=== PATIENT | male | born 1935 | race Caucasian/White ===

== ENCOUNTER 2017-04-06 02:10 | Inpatient (IN) | payer MEDICARE, OTHER ==
--- NOTE | 2017-04-06 02:25 | EDM.PDOC ---
ED HPI GENERAL MEDICAL PROBLEM - General Chief Complaint: Diabetic Complaint Stated Complaint: FROM [facility] Time Seen by Provider: 04/06/17 02:13 Source of Information: Reports: Patient, EMS History Limitations: Reports: No Limitations - History of Present Illness INITIAL COMMENTS - FREE TEXT/NARRATIVE: pt states is here for BS problem, denies pain. EMS found pt @44 - Related Data Allergies Allergy/AdvReac Type Severity Reaction Status Date / Time meperidine [From Demerol] Allergy Cannot Verified 04/06/17 03:47 Remember Home Meds: Home Meds Apixaban [Eliquis] 10 mg PO BID 04/06/17 [History] Ascorbic Acid 500 mg PO DAILY 04/06/17 [History] Aspirin [Halfprin] 81 mg PO BRK 04/06/17 [History] Carvedilol [Coreg] 6.25 mg PO BIDMEALS 04/06/17 [History] Doxycycline Monohydrate 100 mg PO BID 04/06/17 [History] Furosemide [Lasix] 40 mg PO BID 04/06/17 [History] Insulin Aspart [NovoLOG] 0 unit SQ WITHMEALSANDBED 04/06/17 [History] Insulin Aspart [NovoLOG] 10 unit SQ WITHMEALSANDBED 04/06/17 [History] Latanoprost [Xalatan 0.005% Ophth Soln] 2.5 ml EYEBOTH BEDTIME 04/06/17 [History ] Losartan [Cozaar] 100 mg PO DAILY 04/06/17 [History] Multivitamin [Multivitamins] 1 each PO DAILY 04/06/17 [History] Pantoprazole Sodium 40 mg PO DAILY 04/06/17 [History] Potassium Chloride [K-Tab ER] 40 meq PO DAILY 04/06/17 [History] Ranitidine HCl [Zantac] 150 mg PO BID 04/06/17 [History] Zolpidem Tartrate [Ambien] 5 mg PO QPM 04/06/17 [History] atorvaSTATin Calcium [Atorvastatin Calcium] 10 mg PO QPM 04/06/17 [History] busPIRone HCl [Buspirone HCl] 7.5 mg PO BID 04/06/17 [History] ED ROS GENERAL - Review of Systems Review Of Systems: ROS reveals no pertinent complaints other than HPI. ED EXAM GENERAL NO PERIP PULSE - Physical Exam Exam: See Below Exam Limited By: No Limitations General Appearance: Alert, WD/WN, No Apparent Distress. No: Other Eye Exam: Bilateral Eye: PERRL (pupils ER $) Ears: Hearing Grossly Normal Throat/Mouth: Normal Voice, No Airway Compromise Head: Atraumatic Neck: Non-Tender, Full Range of Motion Respiratory/Chest: No Respiratory Distress Cardiovascular: Regular Rate, Rhythm GI/Abdominal: Soft, Non-Tender Extremities: Other (bilat BKA) Neurological: Alert, Oriented, CN II-XII Intact, Normal Cognition, Normal Gait Psychiatric: Normal Affect. No: Normal Mood Skin Exam: Other (generalized pitting edema) Lymphatic: No Adenopathy Course - Vital Signs Last Recorded V/S: Last Vital Signs Temp 35.5 C 04/06/17 02:14 Pulse 58 L 04/06/17 02:14 Resp 12 04/06/17 02:14 BP 100/45 L 04/06/17 02:14 Pulse Ox 97 04/06/17 02:14 - Orders/Labs/Meds Orders: Active Orders 24 hr Category Date Time Status Blood Glucose Check, Bedside [RC] ONETIME Care 04/06/17 02:59 Active EKG 12 Lead [EKG Documentation Completion] [RC] STAT Care 04/06/17 03:13 Active Chest 1V Frontal [CR] Urgent Exams 04/06/17 03:00 Taken Labs: Laboratory Tests 04/06/17 04/06/17 04/06/17 Range/Units 02:45 02:45 02:45 WBC 7.3 (5.0-10.0) 10^3/uL RBC 4.36 L (4.6-6.2) 10^6/uL Hgb 11.9 L (14.0-18.0) g/dL Hct 36.6 L (40.0-54.0) % MCV 83.9 (80-100) fL MCH 27.3 (27.0-34.0) pg MCHC 32.5 L (33.0-35.0) g/dL Plt Count 227 (150-450) 10^3/uL Neut % (Auto) 82.6 H (42.2-75.2) % Lymph % (Auto) 9.2 L (20.5-50.1) % [place] % (Auto) 7.0 (2-8) % Eos % (Auto) 1.1 (1.0-3.0) % Baso % (Auto) 0.1 (0.0-1.0) % Sodium 141 (135-145) mmol/L Potassium 3.9 (3.6-5.0) mmol/L Chloride 103 (101-111) mmol/L Carbon Dioxide 29.0 (21.0-31.0) mmol/L Anion Gap 12.9 BUN 23 H (7-18) mg/dL Creatinine 1.4 H (0.6-1.3) mg/dL Est Cr Clr Drug Dosing 42.78 mL/min Estimated GFR (MDRD) 49 BUN/Creatinine Ratio 16.42 Glucose 64 L (74-105) mg/dL POC Glucose (83-110) mg/dl Calcium 8.5 (8.4-10.2) mg/dl Total Bilirubin 0.8 (0.2-1.0) mg/dL AST 19 (10-42) IU/L ALT 14 (10-60) IU/L Alkaline Phosphatase 85 (42-121) IU/L Troponin I 0.07 H* (0.00-0.02) ng/ml B-Natriuretic Peptide 2000 H (0-100) pg/ml Total Protein 5.2 L (6.7-8.2) g/dl Albumin 2.5 L (3.2-5.5) g/dl Globulin 2.7 Albumin/Globulin Ratio 0.93 /19/17 Range/Units 02:48 WBC (5.0-10.0) 10^3/uL RBC (4.6-6.2) 10^6/uL Hgb (14.0-18.0) g/dL Hct (40.0-54.0) % MCV (80-100) fL MCH (27.0-34.0) pg MCHC (33.0-35.0) g/dL Plt Count (150-450) 10^3/uL Neut % (Auto) (42.2-75.2) % Lymph % (Auto) (20.5-50.1) % [place] % (Auto) (2-8) % Eos % (Auto) (1.0-3.0) % Baso % (Auto) (0.0-1.0) % Sodium (135-145) mmol/L Potassium (3.6-5.0) mmol/L Chloride (101-111) mmol/L Carbon Dioxide (21.0-31.0) mmol/L Anion Gap BUN (7-18) mg/dL Creatinine (0.6-1.3) mg/dL Est Cr Clr Drug Dosing mL/min Estimated GFR (MDRD) BUN/Creatinine Ratio Glucose (74-105) mg/dL POC Glucose 59 L (83-110) mg/dl Calcium (8.4-10.2) mg/dl Total Bilirubin (0.2-1.0) mg/dL AST (10-42) IU/L ALT (10-60) IU/L Alkaline Phosphatase (42-121) IU/L Troponin I (0.00-0.02) ng/ml B-Natriuretic Peptide (0-100) pg/ml Total Protein (6.7-8.2) g/dl Albumin (3.2-5.5) g/dl Globulin Albumin/Globulin Ratio - Re-Assessments/Exams Free Text/Narrative Re-Assessment/Exam: 04/06/17 04:[address] Romero/Hector @ who kindly accepted pt. Departure - Departure Time of Disposition: 04:14 Disposition: DC/Tfer to Acute Hospital 02 Condition: Poor Clinical Impression: Hypoglycemia, Pleural effusion CHF (congestive heart failure) Qualifiers: Congestive heart failure type: unspecified congestive heart failure type Congestive heart failure chronicity: acute on chronic Qualified Code(s): I50.9 - Heart failure, unspecified Pneumonia Qualifiers: Pneumonia type: due to unspecified organism Laterality: left Lung location: lower lobe of lung Qualified Code(s): J18.1 - Lobar pneumonia, unspecified organism Hypotension Qualifiers: Hypotension type: other hypotension type Qualified Code(s): I95.89 - Other hypotension - Discharge Information Forms: Interfacility Transfer EMTALA - My Orders Last 24 Hours: My Active Orders 04/06/17 02:59 Blood Glucose Check, Bedside [RC] ONETIME 04/06/17 03:00 Chest 1V Frontal [CR] Urgent 04/06/17 03:13 EKG 12 Lead [EKG Documentation Completion] [RC] STAT - Assessment/Plan Last 24 Hours: My Active Orders 04/06/17 02:59 Blood Glucose Check, Bedside [RC] ONETIME 04/06/17 03:00 Chest 1V Frontal [CR] Urgent 04/06/17 03:13 EKG 12 Lead [EKG Documentation Completion] [RC] STAT
[2017-04-06] MEDS ORDERED: Acetaminophen 325 MG Tab PO PRN (05:38)
[2017-04-06] MEDS ORDERED: Sodium Chloride 0.9% 10 ML Syringe FLUSH PRN (05:38)
--- NOTE | 2017-04-06 05:48 | PCM.HP ---
H&P History of Present Illness - General Date of Service: 04/06/17 Admit Problem/Dx: Admission Diagnosis/Problem Admission Diagnosis/Problem CHF, Congestive heart failure Source of Information: Patient, Family, Provider - History of Present Illness Initial Comments - Free Text/Narative: The patient is a 81-year-old gentleman with a history of diabetes, difficult to control. The patient has bilateral below-knee amputation. The patient was recently admitted to [facility] with pneumonia and sepsis. The patient was on IV fluids and the had severe edema subsequently. The patient was treated for congestive heart failure, olecranon bursitis, left upper extremity DVT. The patient was eventually transferred back to a skilled nursing for further physical therapy. The patient was noted to have very labile blood sugars. Was brought into the emergency room with hypoglycemia. Does not report any chest pain, shortness of breath, fever or chills. He has finished antibiotics for his pneumonia. He is usually feeling when his blood sugar is low He has not been using long-acting formulations because of hypoglycemia. He does not want cardiopulmonary resuscitation. He did not want to be transferred to a higher level of care. - Related Data Allergies/Adverse Reactions: Allergies Allergy/AdvReac Type Severity Reaction Status Date / Time meperidine [From Demerol] Allergy Unknown Cannot Verified 04/06/17 05:50 Remember Home Medications: Home Meds Apixaban [Eliquis] 10 mg PO BID 04/06/17 [History] Ascorbic Acid 500 mg PO DAILY 04/06/17 [History] Aspirin [Halfprin] 81 mg PO BRK 04/06/17 [History] Carvedilol [Coreg] 6.25 mg PO BIDMEALS 04/06/17 [History] Doxycycline Monohydrate 100 mg PO BID 04/06/17 [History] Furosemide [Lasix] 40 mg PO BID 04/06/17 [History] Insulin Aspart [NovoLOG] 0 unit SQ WITHMEALSANDBED 04/06/17 [History] Insulin Aspart [NovoLOG] 10 unit SQ WITHMEALSANDBED 04/06/17 [History] Latanoprost [Xalatan 0.005% Ophth Soln] 2.5 ml EYEBOTH BEDTIME 04/06/17 [History ] Losartan [Cozaar] 100 mg PO DAILY 04/06/17 [History] Multivitamin [Multivitamins] 1 each PO DAILY 04/06/17 [History] Pantoprazole Sodium 40 mg PO DAILY 04/06/17 [History] Potassium Chloride [K-Tab ER] 40 meq PO DAILY 04/06/17 [History] Ranitidine HCl [Zantac] 150 mg PO BID 04/06/17 [History] Zolpidem Tartrate [Ambien] 5 mg PO QPM 04/06/17 [History] atorvaSTATin Calcium [Atorvastatin Calcium] 10 mg PO QPM 04/06/17 [History] busPIRone HCl [Buspirone HCl] 7.5 mg PO BID 04/06/17 [History] Past Medical History HEENT History: Reports: Cataract, Hard of Hearing, Impaired Vision Cardiovascular History: Reports: Blood Clots/VTE/DVT Other Cardiovascular History: left arm blood clot Respiratory History: Reports: Pneumonia, Recurrent Gastrointestinal History: Reports: None Endocrine/Metabolic History: Reports: Diabetes, Type II - Past Surgical History Cardiovascular Surgical History: Reports: None Respiratory Surgical History: Reports: None Endocrine Surgical History: Reports: None Social & Family History - Family History Family Medical History: Noncontributory - Tobacco Use Smoking Status *Q: Never Smoker Second Hand Smoke Exposure: No - Caffeine Use Caffeine Use: Reports: None - Recreational Drug Use Recreational Drug Use: No H&P Review of Systems - Review of Systems: Review Of Systems: See Below General: Denies: Fever, Chills Pulmonary: Denies: Shortness of Breath Cardiovascular: Reports: Edema. Denies: Chest Pain Gastrointestinal: Denies: Abdominal Pain Skin: Reports: Bruising Psychiatric: Reports: Anxiety Exam - Exam Exam: See Below - Vital Signs Vital Signs: Last Vital Signs Temp 35.5 C 04/06/17 02:14 Pulse 58 L 04/06/17 02:14 Resp 12 04/06/17 02:14 BP 100/45 L 04/06/17 02:14 Pulse Ox 97 04/06/17 02:14 Weight: 81.647 kg - Exam Quality Assessment: Supplemental Oxygen General: Alert, Oriented Lungs: Decreased Breath Sounds, Rales Cardiovascular: Regular Rate, Regular Rhythm, Bradycardia GI/Abdominal Exam: Normal Bowel Sounds, Soft, Non-Tender Extremities: Pedal Edema, Other (With lymphedema wrap, bilateral BKA, massive edema up onto the buttocks, left upper extremity) Skin: Warm Neuro Extensive - Mental Status: Alert, Oriented x3 Psychiatric: Alert, Depressed - Patient Data Lab Results Last 24 hrs: Laboratory Results - last 24 hr 04/06/17 Range/Units 05:28 POC Glucose 158 H (83-110) mg/dl Result Diagrams: 04/06/17 02:45 04/06/17 02:45 Imaging Impressions Last 24 hrs: Chest x-ray per my reading shows a left sided opacity, likely effusion EKG INTERPRETATION Rhythm: NSR *Q Meaningful Use (ADM) - VTE *Q VTE Criteria *Q: - Stroke *Q Stroke Criteria *Q: - AMI *Q AMI Criteria *Q: - Problem List (1) CHF (congestive heart failure) SNOMED Code(s): 13217591 ICD Code: I50.9 - HEART FAILURE, UNSPECIFIED Status: Acute Current Visit : Yes Qualifiers: Congestive heart failure type: unspecified congestive heart failure type Congestive heart failure chronicity: acute on chronic Qualified Code(s): I50.9 - Heart failure, unspecified (2) Hypoglycemia SNOMED Code(s): 765660494 ICD Code: E16.2 - HYPOGLYCEMIA, UNSPECIFIED Status: Acute Current Visit: Yes (3) Pleural effusion SNOMED Code(s): 41330710 ICD Code: J90 - PLEURAL EFFUSION, NOT ELSEWHERE CLASSIFIED Status: Acute Current Visit: Yes Problem List Initiated/Reviewed/Updated: Yes Orders Last 24hrs: Active Orders 24 hr Category Date Time Status Patient Status [ADT] Routine ADT 04/06/17 05:38 Ordered Glucose [Blood Glucose Check, Bedside] [RC] QIDACANDBED Care 04/06/17 05:37 Ordered Oxygen Therapy [RC] PRN Care 04/06/17 05:38 Ordered Peripheral IV Care [RC] . DIRECTED Care 04/06/17 05:40 Ordered Up With Assistance [RC] ASDIRECTED Care 04/06/17 05:38 Ordered VTE/DVT Education [RC] PER UNIT ROUTINE Care 04/06/17 05:38 Ordered Vital Signs [RC] Q4H Care 04/06/17 05:38 Ordered OT Evaluation and Treatment [CONS] Routine Cons 04/06/17 05:38 Active OT Evaluation and Treatment [CONS] Routine Cons 04/06/17 05:41 Ordered PT Evaluation and Treatment [CONS] Routine Cons 04/06/17 05:41 Ordered Consistent Carbohydrate Diet [DIET] Diet 04/06/17 Breakfast Ordered BASIC METABOLIC PANEL,BMP [CHEM] AM Lab 04/07/17 05:15 Ordered CBC WITH AUTO DIFF [HEME] AM Lab 04/07/17 05:15 Ordered MAGNESIUM [CHEM] AM Lab 04/07/17 05:11 Ordered PHOSPHORUS [CHEM] AM Lab 04/07/17 05:11 Ordered TROPONIN I [CHEM] Timed Lab 04/06/17 11:00 Ordered Acetaminophen [Tylenol] Med 04/06/17 05:38 Ordered 650 mg PO Q4H PRN Apixaban [Eliquis] Med 04/08/17 09:00 Ordered 10 mg PO BID Ascorbic Acid [Vitamin C] Med 04/06/17 09:00 Ordered 500 mg PO DAILY Aspirin [Halfprin] Med 04/06/17 08:00 Ordered 81 mg PO BRK Carvedilol [Coreg] Med 04/06/17 08:00 Ordered 6.25 mg PO BIDMEALS Doxycycline Monohydrate [Doxycycline Monohydrate] Med 04/06/17 09:00 Ordered 100 mg PO BID Furosemide [Lasix] Med 04/06/17 09:00 Ordered 40 mg PO BID Insulin Aspart [NovoLOG] Med 04/06/17 08:00 Ordered See Protocol SUBCUT TIDAC Latanoprost [Xalatan 0.005% Ophth Soln] Med 04/06/17 21:00 Ordered 2.5 ml EYEBOTH BEDTIME Losartan [Cozaar] Med 04/06/17 09:00 Ordered 100 mg PO DAILY Multivitamin [Multivitamins] Med 04/06/17 09:00 Ordered 1 each PO DAILY Non-Formulary Medication [NF Drug] Med 04/06/17 09:00 Ordered 5 each PO BID Ondansetron [Zofran ODT] Med 04/06/17 05:38 Ordered 4 mg PO Q4H PRN Pantoprazole [ProTONIX] Med 04/06/17 09:00 Ordered 40 mg PO DAILY Potassium Chloride [K-Tab ER] Med 04/06/17 09:00 Ordered 40 meq PO DAILY Ranitidine HCl [Zantac] Med 04/06/17 09:00 Ordered 150 mg PO BID Sodium Chloride 0.9% [Saline Flush] Med 04/06/17 05:38 Ordered 10 ml FLUSH ASDIRECTED PRN Zolpidem [Ambien] Med 04/06/17 21:00 Ordered 5 mg PO BEDTIME atorvaSTATin [Lipitor] Med 04/06/17 05:30 Ordered 10 mg PO QPM busPIRone HCl [Buspirone HCl] Med 04/06/17 09:00 Ordered 7.5 mg PO BID Peripheral IV Insertion Adult [OM.PC] Routine Oth 04/06/17 05:38 Ordered Saline Lock Insert [OM.PC] Routine Oth 04/06/17 05:38 Ordered Resuscitation Status Routine Resus Stat 04/06/17 05:38 Ordered Medication Orders Acetaminophen (Tylenol) 650 mg PO Q4H PRN PRN Reason: Pain (Mild 1-3)/fever Ascorbic Acid (Vitamin C) 500 mg PO DAILY [facility] Aspirin (Halfprin) 81 mg PO BRK [facility] Atorvastatin Calcium (Lipitor) 10 mg PO BEDTIME [facility] Buspirone HCl (Buspar) 7.5 mg PO BID [facility] Carvedilol (Coreg) 6.25 mg PO BIDMEALS [facility] Furosemide (Lasix) 40 mg PO BIDDIURETIC [facility] Insulin Aspart (Novolog) 0 unit SUBCUT TIDAC [facility] PRN Reason: Protocol Latanoprost (Xalatan 0.005% Ophth Soln) 2.5 ml EYEBOTH BEDTIME [facility] Losartan Potassium (Cozaar) 100 mg PO DAILY [facility] Multivitamins (Thera) 1 each PO DAILY [facility] Non-Formulary Medication (Apixaban [Eliquis]) 10 mg PO BID [facility] Non-Formulary Medication (Doxycycline Monohydrate [Doxycycline Monohydrate]) 100 mg PO BID [facility] Non-Formulary Medication (Potassium Chloride [K-Tab Er]) 40 meq PO DAILY [facility] Non-Formulary Medication (Ranitidine Hcl [Zantac]) 150 mg PO BID [facility] Non-Formulary Medication (Nf Drug) 5 each PO BID [facility] Stop: 04/07/17 21:01 Ondansetron HCl (Zofran Odt) 4 mg PO Q4H PRN PRN Reason: nausea, able to take PO Pantoprazole Sodium (Protonix) 40 mg PO DAILY [facility] Sodium Chloride (Saline Flush) 10 ml FLUSH ASDIRECTED PRN PRN Reason: Keep Vein Open Zolpidem Tartrate (Ambien) 5 mg PO BEDTIME [facility] Assessment/Plan Comment:: Uncontrolled blood sugars with diabetes Blood sugars have been variable, low on the night of the admission The patient has been on insulin aspart with sliding scale 0-199 - 0 units 200- 250 -5 units 251-300 -7 units Abnormal chest x-ray With left sided opacity - likely relates to effusion The patient does not have active pneumonia symptoms This might relate to a mass, resolved infiltrate, effusion We will see if a CAT scan of the chest has been done at [facility] We will monitor for signs and symptoms of active infection For now hold off on pneumonia treatment Continue diuretics If developing respiratory failure consider thoracentesis Acute on chronic congestive heart failure Likely systolic congestive heart failure We will obtain records from [facility] if an echocardiogram has been done there Continue lower extremity lymphedema wraps Continue to treat with Lasix Follow electrolytes and renal function test Continue Coreg, losartan The patient has bradycardia but will try to maintain current Coreg dose for now We will monitor blood pressure with the current Coreg and losartan dose Left elbow bursitis On doxycycline Continue that Left upper extremity DVT Treat with Eliquis, stepdown the dose on the Coronary artery disease Minimally elevated troponin noted We will recheck that, this is likely chronic Chronic kidney disease stage III Will follow with diuretics Depression Treat with Buspar Continue Ambien as needed for sleep Discussed with Dr. Goode
[2017-04-06] MEDS: atorvaSTATin 10 MG Tab PO SCH ×2 (05:58→20:40)
[2017-04-06] MEDS: Pantoprazole 40 MG Tab.CR PO SCH (05:59)
[2017-04-06] MEDS ORDERED: Furosemide 40 MG Tab PO SCH (08:00)
[2017-04-06] MEDS: Insulin Aspart 100 Units/ML 3 ML Pen SUBCUT SCH ×3 (08:26→17:48)
[2017-04-06] MEDS: Aspirin 81 MG Tab.EC PO SCH (08:39)
[2017-04-06] MEDS: Doxycycline 100 MG Cap PO SCH ×2 (08:45→20:40)
[2017-04-06] MEDS: Potassium Chloride 10 MEQ Tab.ER PO SCH (08:45)
[2017-04-06] MEDS: busPIRone 15 MG Tab PO SCH ×2 (08:46→20:41)
[2017-04-06] MEDS: Multivitamins,Therapeutic Tab PO SCH (08:46)
[2017-04-06] MEDS: Famotidine 20 MG Tab PO SCH (08:47)
[2017-04-06] MEDS: Carvedilol 6.25 MG Tab PO SCH ×3 (08:48→20:22)
[2017-04-06] MEDS: Losartan 50 MG Tab PO SCH ×2 (08:49→14:06)
[2017-04-06] MEDS ORDERED: Non-Formulary Medication 1 Each PO SCH (09:00)
[2017-04-06] MEDS ORDERED: Non-Formulary Medication 1 Each (Ranitidine Hcl [Zantac] 150 MG) PO SCH (09:00)
[2017-04-06] MEDS ORDERED: Ascorbic Acid 500 MG Tab PO SCH (09:00)
[2017-04-06] MEDS ORDERED: Albuterol/Ipratropium 3.0-0.5 MG/3 ML Neb Soln NEB PRN (10:27)
[2017-04-06] MEDS: APIXABAN 5 MG PO SCH ×2 (11:24→20:43)
[2017-04-06] MEDS: Furosemide 40 MG Tab PO SCH ×2 (14:08→20:23)
[2017-04-06] MEDS ORDERED: Insulin Aspart 100 Units/ML 3 ML Pen SUBCUT ONE ×3 (17:48→22:37)
[2017-04-06] MEDS ORDERED: LORazepam 2 MG/ML Syringe IVPUSH ONE (17:49)
[2017-04-06] MEDS: Zolpidem 5 MG Tab PO SCH (20:41)
[2017-04-06] MEDS: Latanoprost 0.005% Ophth Soln 2.5 ML Bottle EYEBOTH SCH (20:41)
[2017-04-07] MEDS: LORazepam 0.5 MG Tab PO PRN ×3 (00:04→15:13)
[2017-04-07] MEDS: Pantoprazole 40 MG Tab.CR PO SCH (05:53)
[2017-04-07] MEDS ORDERED: Losartan 50 MG Tab PO SCH (09:00)
[2017-04-07] MEDS: Potassium Chloride 10 MEQ Tab.ER PO SCH (09:44)
[2017-04-07] MEDS: Doxycycline 100 MG Cap PO SCH ×2 (09:44→22:01)
[2017-04-07] MEDS: Aspirin 81 MG Tab.EC PO SCH (09:44)
[2017-04-07] MEDS: Multivitamins,Therapeutic Tab PO SCH (09:44)
[2017-04-07] MEDS: Famotidine 20 MG Tab PO SCH (09:45)
[2017-04-07] MEDS: busPIRone 15 MG Tab PO SCH ×2 (09:45→22:00)
[2017-04-07] MEDS: Carvedilol 6.25 MG Tab PO SCH ×2 (09:45→18:40)
[2017-04-07] MEDS: APIXABAN 5 MG PO SCH ×3 (09:47→22:19)
[2017-04-07] MEDS: Insulin Aspart 100 Units/ML 3 ML Pen SUBCUT SCH ×3 (09:47→18:23)
[2017-04-07] MEDS: Furosemide 40 MG Tab PO SCH ×2 (09:53→15:13)
--- NOTE | 2017-04-07 09:55 | PCM.PN ---
- General Info Date of Service: 04/07/17 Admission Dx/Problem (Free Text): Admission Diagnosis/Problem Admission Diagnosis/Problem CHF, Congestive heart failure Subjective Update: During the day yesterday developed diarrhea which seems to be improved. Blood sugars were uncontrolled up to 700. Blood pressure was on the lower side. He was very anxious yesterday which improved after Ativan. This morning feeling better. Denies shortness of breath. No chest pain. - Review of Systems General: Reports: Weakness. Denies: Fever Pulmonary: Denies: Shortness of Breath Cardiovascular: Denies: Chest Pain Gastrointestinal: Reports: Diarrhea. Denies: Abdominal Pain - Patient Data Vitals - Most Recent: Last Vital Signs Temp 36.8 C 04/07/17 02:46 Pulse 63 04/07/17 02:46 Resp 20 04/07/17 02:46 BP 89/56 L 04/07/17 02:46 Pulse Ox 95 04/07/17 02:46 Weight - Most Recent: 83.597 kg I&O - Last 24 Hours: Intake & Output 04/06/17 04/07/17 04/07/17 22:59 06:59 14:59 Intake Total 640 200 Output Total 250 Balance 390 200 Lab Results Last 24 Hours: Laboratory Results - last 24 hr 04/06/17 04/06/17 04/06/17 Range/Units 10:49 10:54 16:51 WBC (5.0-10.0) 10^3/uL RBC (4.6-6.2) 10^6/uL Hgb (14.0-18.0) g/dL Hct (40.0-54.0) % MCV (80-100) fL MCH (27.0-34.0) pg MCHC (33.0-35.0) g/dL Plt Count (150-450) 10^3/uL Neut % (Auto) (42.2-75.2) % Lymph % (Auto) (20.5-50.1) % [place] % (Auto) (2-8) % Eos % (Auto) (1.0-3.0) % Baso % (Auto) (0.0-1.0) % Sodium (135-145) mmol/L Potassium (3.6-5.0) mmol/L Chloride (101-111) mmol/L Carbon Dioxide (21.0-31.0) mmol/L Anion Gap BUN (7-18) mg/dL Creatinine (0.6-1.3) mg/dL Est Cr Clr Drug Dosing mL/min Estimated GFR (MDRD) Glucose (74-105) mg/dL POC Glucose 380 H > 500 H* (83-110) mg/dl Calcium (8.4-10.2) mg/dl Phosphorus (2.5-4.6) mg/dL Magnesium (1.8-2.5) mg/dL Troponin I 0.06 H* (0.00-0.02) ng/ml 04/06/17 04/06/17 04/06/17 Range/Units 17:00 20:02 22:34 WBC (5.0-10.0) 10^3/uL RBC (4.6-6.2) 10^6/uL Hgb (14.0-18.0) g/dL Hct (40.0-54.0) % MCV (80-100) fL MCH (27.0-34.0) pg MCHC (33.0-35.0) g/dL Plt Count (150-450) 10^3/uL Neut % (Auto) (42.2-75.2) % Lymph % (Auto) (20.5-50.1) % [place] % (Auto) (2-8) % Eos % (Auto) (1.0-3.0) % Baso % (Auto) (0.0-1.0) % Sodium (135-145) mmol/L Potassium (3.6-5.0) mmol/L Chloride (101-111) mmol/L Carbon Dioxide (21.0-31.0) mmol/L Anion Gap BUN (7-18) mg/dL Creatinine (0.6-1.3) mg/dL Est Cr Clr Drug Dosing mL/min Estimated GFR (MDRD) Glucose 703 H* (74-105) mg/dL POC Glucose 481 H* 469 H* (83-110) mg/dl Calcium (8.4-10.2) mg/dl Phosphorus (2.5-4.6) mg/dL Magnesium (1.8-2.5) mg/dL Troponin I (0.00-0.02) ng/ml 04/07/17 04/07/17 04/07/17 Range/Units 01:30 05:55 05:55 WBC 10.2 H (5.0-10.0) 10^3/uL RBC 4.12 L (4.6-6.2) 10^6/uL Hgb 11.2 L (14.0-18.0) g/dL Hct 34.5 L (40.0-54.0) % MCV 83.7 (80-100) fL MCH 27.2 (27.0-34.0) pg MCHC 32.5 L (33.0-35.0) g/dL Plt Count 212 (150-450) 10^3/uL Neut % (Auto) 76.5 H (42.2-75.2) % Lymph % (Auto) 13.1 L (20.5-50.1) % [place] % (Auto) 9.3 H (2-8) % Eos % (Auto) 0.8 L (1.0-3.0) % Baso % (Auto) 0.3 (0.0-1.0) % Sodium 133 L (135-145) mmol/L Potassium 4.2 (3.6-5.0) mmol/L Chloride 98 L (101-111) mmol/L Carbon Dioxide 23.0 (21.0-31.0) mmol/L Anion Gap 16.2 BUN 35 H (7-18) mg/dL Creatinine 1.9 H (0.6-1.3) mg/dL Est Cr Clr Drug Dosing 30.50 mL/min Estimated GFR (MDRD) 34 Glucose 259 H (74-105) mg/dL POC Glucose 275 H (83-110) mg/dl Calcium 8.1 L (8.4-10.2) mg/dl Phosphorus 3.9 (2.5-4.6) mg/dL Magnesium 1.6 L (1.8-2.5) mg/dL Troponin I (0.00-0.02) ng/ml 04/07/17 Range/Units 08:02 WBC (5.0-10.0) 10^3/uL RBC (4.6-6.2) 10^6/uL Hgb (14.0-18.0) g/dL Hct (40.0-54.0) % MCV (80-100) fL MCH (27.0-34.0) pg MCHC (33.0-35.0) g/dL Plt Count (150-450) 10^3/uL Neut % (Auto) (42.2-75.2) % Lymph % (Auto) (20.5-50.1) % [place] % (Auto) (2-8) % Eos % (Auto) (1.0-3.0) % Baso % (Auto) (0.0-1.0) % Sodium (135-145) mmol/L Potassium (3.6-5.0) mmol/L Chloride (101-111) mmol/L Carbon Dioxide (21.0-31.0) mmol/L Anion Gap BUN (7-18) mg/dL Creatinine (0.6-1.3) mg/dL Est Cr Clr Drug Dosing mL/min Estimated GFR (MDRD) Glucose (74-105) mg/dL POC Glucose 294 H (83-110) mg/dl Calcium (8.4-10.2) mg/dl Phosphorus (2.5-4.6) mg/dL Magnesium (1.8-2.5) mg/dL Troponin I (0.00-0.02) ng/ml Med Orders - Current: Current Medications Acetaminophen (Tylenol) 650 mg PO Q4H PRN PRN Reason: Pain (Mild 1-3)/fever Albuterol/Ipratropium (Duoneb 3.0-0.5 Mg/3 Ml) 3 ml NEB Q4HRRT PRN PRN Reason: Cough Last Admin: 04/06/17 11:42 Dose: 3 ml Aspirin (Halfprin) 81 mg PO BRK [facility] Last Admin: 04/06/17 08:39 Dose: 81 mg Atorvastatin Calcium (Lipitor) 10 mg PO BEDTIME [facility] Last Admin: 04/06/17 20:40 Dose: 10 mg Buspirone HCl (Buspar) 7.5 mg PO BID [facility] Last Admin: 04/06/17 20:41 Dose: 7.5 mg Carvedilol (Coreg) 6.25 mg PO BIDMEALS [facility] Last Admin: 04/06/17 20:22 Dose: Not Given Doxycycline Hyclate (Vibramycin) 100 mg PO BID [facility] Stop: 04/07/17 22:00 Last Admin: 04/06/17 20:40 Dose: 100 mg Famotidine (Pepcid) 20 mg PO DAILY [facility] Last Admin: 04/06/17 08:47 Dose: 20 mg Furosemide (Lasix) 40 mg PO BID [facility] Insulin Aspart (Novolog) 0 unit SUBCUT TIDAC [facility] PRN Reason: Protocol Latanoprost (Xalatan 0.005% Ophth Soln) 0 ml EYEBOTH BEDTIME [facility] Last Admin: 04/06/17 20:41 Dose: 1 drop Lorazepam (Ativan) 0.5 mg PO Q4H PRN PRN Reason: Anxiety Last Admin: 04/07/17 04:05 Dose: 0.5 mg Multivitamins (Thera) 1 each PO DAILY [facility] Last Admin: 04/06/17 08:46 Dose: 1 each Apixaban (Eliquis) 5 (Mg Tab Own Med) 0 each PO BID [facility] Ondansetron HCl (Zofran Odt) 4 mg PO Q4H PRN PRN Reason: nausea, able to take PO Pantoprazole Sodium (Protonix) 40 mg PO ACBRK [facility] Last Admin: 04/07/17 05:53 Dose: 40 mg Potassium Chloride (Klor-Con 10) 40 meq PO DAILY [facility] Last Admin: 04/06/17 08:45 Dose: 40 meq Sodium Chloride (Saline Flush) 10 ml FLUSH ASDIRECTED PRN PRN Reason: Keep Vein Open Zolpidem Tartrate (Ambien) 5 mg PO BEDTIME [facility] Last Admin: 04/06/17 20:41 Dose: 5 mg Discontinued Medications Ascorbic Acid (Vitamin C) 500 mg PO DAILY [facility] Last Admin: 04/06/17 08:45 Dose: 500 mg Furosemide (Lasix) 40 mg PO BIDDIURETIC [facility] Last Admin: 04/06/17 08:39 Dose: 40 mg Furosemide (Lasix) 40 mg PO TID [facility] Last Admin: 04/06/17 20:23 Dose: Not Given Insulin Aspart (Novolog) 0 unit SUBCUT TIDAC [facility] PRN Reason: Protocol Last Admin: 04/06/17 17:48 Dose: Not Given Insulin Aspart (Novolog) 20 unit SUBCUT ONETIME ONE Stop: 04/06/17 17:49 Last Admin: 04/06/17 18:08 Dose: 20 units Insulin Aspart (Novolog) 10 unit SUBCUT ONETIME ONE Stop: 04/06/17 20:20 Last Admin: 04/06/17 20:36 Dose: 10 units Insulin Aspart (Novolog) 10 unit SUBCUT ONETIME ONE Stop: 04/06/17 22:38 Last Admin: 04/06/17 22:51 Dose: 10 units Lorazepam (Ativan) 0.5 mg IVPUSH ONETIME ONE Stop: 04/06/17 17:50 Last Admin: 04/06/17 18:10 Dose: 0.5 mg Losartan Potassium (Cozaar) 100 mg PO DAILY [facility] Last Admin: 04/06/17 14:06 Dose: Not Given Losartan Potassium (Cozaar) 50 mg PO DAILY [facility] Non-Formulary Medication (Apixaban [Eliquis]) 10 mg PO BID [facility] Non-Formulary Medication (Nf Drug) 5 each PO BID [facility] Stop: 04/07/17 21:01 Last Admin: 04/06/17 11:30 Dose: 5 each Apixaban (Eliquis) 5 (Mg Tab Own Med) 0 mg PO BID [facility] Stop: 04/06/17 22:00 Last Admin: 04/06/17 20:43 Dose: 10 mg - Exam General: Alert, Oriented Neck: Supple Lungs: Decreased Breath Sounds, Rhonchi Cardiovascular: Regular Rate, Regular Rhythm GI/Abdominal Exam: Normal Bowel Sounds, Soft, Non-Tender Extremities: Other (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, left upper extremity edema) Skin: Warm, Other (Left elbow skin tear with drainage) Psy/Mental Status: Alert, Normal Affect, Normal Mood - Problem List & Annotations (1) CHF (congestive heart failure) SNOMED Code(s): 42749481 Code(s): I50.9 - HEART FAILURE, UNSPECIFIED Status: Acute Current Visit: Yes Qualifiers: Congestive heart failure type: unspecified congestive heart failure type Congestive heart failure chronicity: acute on chronic Qualified Code(s): I50.9 - Heart failure, unspecified (2) Hypoglycemia SNOMED Code(s): 684766615 Code(s): E16.2 - HYPOGLYCEMIA, UNSPECIFIED Status: Acute Current Visit: Yes (3) Pleural effusion SNOMED Code(s): 51934770 Code(s): J90 - PLEURAL EFFUSION, NOT ELSEWHERE CLASSIFIED Status: Acute Current Visit: Yes (4) Acute renal failure SNOMED Code(s): 02186639 Code(s): N17.9 - ACUTE KIDNEY FAILURE, UNSPECIFIED Status: Acute Current Visit: Yes - Problem List Review Problem List Initiated/Reviewed/Updated: Yes - My Orders Last 24 Hours: My Active Orders 04/06/17 09:00 Famotidine [Pepcid] 20 mg PO DAILY 04/06/17 10:27 RT Aerosol Therapy [RC] ASDIRECTED Albuterol/Ipratropium [DuoNeb 3.0-0.5 MG/3 ML] 3 ml NEB Q4HRRT PRN 04/06/17 11:13 Wound Care [RC] 0804/06/17 17:53 LORazepam [Ativan] 0.5 mg PO Q4H PRN 04/06/17 18:36 C DIFFICILE TOXIN BY PCR [MREF] Routine 04/06/17 20:00 Blood Glucose Check, Bedside [RC] ONETIME 04/07/17 08:00 Insulin Aspart [NovoLOG] See Protocol SUBCUT TIDAC 04/07/17 09:00 Non-Formulary Medication [NF Drug] 0 each PO BID 04/07/17 10:00 Magnesium Oxide 250 mg PO BIDM 04/07/17 21:00 Furosemide [Lasix] 40 mg PO BID 04/08/17 05:15 BASIC METABOLIC PANEL,BMP [CHEM] AM CBC WITH AUTO DIFF [HEME] AM - Plan Plan:: Uncontrolled blood sugars with diabetes Blood sugars have been variable, low on the night of the admission Both uncontrolled high later during the stay I have increased the supplemental insulin scale. The patient preferred not to use long-acting formulations. He has been managing with the short-acting every 4 times a day at home. Abnormal chest x-ray With left sided opacity - likely relates to effusion The patient does not have active pneumonia symptoms This might relate to a mass, resolved infiltrate, effusion We will see if a CAT scan of the chest has been done at [place] We will monitor for signs and symptoms of active infection For now hold off on pneumonia treatment Continue diuretics If developing respiratory failure consider thoracentesis Acute on chronic congestive heart failure Likely systolic congestive heart failure I have called [place] to obtain further records and to see if an echocardiogram and a CAT scan has been done there Continue lower extremity lymphedema wraps Continue to treat with Lasix Follow electrolytes and renal function test Continue Coreg Stop losartan due to acute renal failure The patient has bradycardia but will try to maintain current Coreg dose for now We will monitor blood pressure with the current Coreg dose Acute renal failure likely due to ATN due to hypotension with a history of chronic kidney disease stage III We will contact the diuretics to twice a day, hold the losartan Left elbow bursitis On doxycycline We will finish that today Left upper extremity DVT Treat with Eliquis, stepdown the dose on the Coronary artery disease Minimally elevated troponin noted We will recheck that, this is likely chronic Depression Treat with Buspar Use Ativan as needed for anxiety Continue Ambien as needed for sleep
[2017-04-07] MEDS: Ondansetron 4 MG Tab.DIS PO PRN (15:13)
[2017-04-07] MEDS: Zolpidem 5 MG Tab PO SCH (21:30)
[2017-04-07] MEDS: atorvaSTATin 10 MG Tab PO SCH (22:01)
[2017-04-07] MEDS: Latanoprost 0.005% Ophth Soln 2.5 ML Bottle EYEBOTH SCH (22:02)
[2017-04-08] MEDS: LORazepam 0.5 MG Tab PO PRN ×3 (03:47→22:05)
[2017-04-08] MEDS: Pantoprazole 40 MG Tab.CR PO SCH (06:47)
[2017-04-08] MEDS ORDERED: Insulin Aspart 100 Units/ML 3 ML Pen SUBCUT ONE (08:18)
[2017-04-08] MEDS: Insulin Aspart 100 Units/ML 3 ML Pen SUBCUT SCH ×3 (08:18→17:47)
[2017-04-08] MEDS: Furosemide 40 MG Tab PO SCH ×2 (08:50→14:20)
[2017-04-08] MEDS: Famotidine 20 MG Tab PO SCH (08:50)
[2017-04-08] MEDS: glipiZIDE 5 MG Tab PO SCH (08:50)
[2017-04-08] MEDS: busPIRone 15 MG Tab PO SCH ×2 (08:51→22:04)
[2017-04-08] MEDS: Potassium Chloride 10 MEQ Tab.ER PO SCH (08:54)
[2017-04-08] MEDS: Multivitamins,Therapeutic Tab PO SCH (08:54)
[2017-04-08] MEDS: Aspirin 81 MG Tab.EC PO SCH (08:54)
[2017-04-08] MEDS ORDERED: APIXABAN 10 MG PO SCH (09:00)
[2017-04-08] MEDS: Ondansetron 4 MG Tab.DIS PO PRN (09:02)
[2017-04-08] MEDS: Carvedilol 6.25 MG Tab PO SCH ×2 (09:47→17:48)
--- NOTE | 2017-04-08 10:11 | PCM.PN ---
- General Info Date of Service: 04/08/17 Admission Dx/Problem (Free Text): Admission Diagnosis/Problem Admission Diagnosis/Problem CHF, Congestive heart failure Subjective Update: diarrhea has resolved Blood sugars are better but still uncontrolled. Anxiety has improved. This morning feeling better. Denies shortness of breath. No chest pain. I have received records from my not. It appears to have significant systolic dysfunction. - Review of Systems General: Reports: Weakness. Denies: Fever Pulmonary: Denies: Shortness of Breath Cardiovascular: Denies: Chest Pain Genitourinary: Denies: Dysuria - Patient Data Vitals - Most Recent: Last Vital Signs Temp 36.8 C 04/08/17 07:00 Pulse 76 04/08/17 09:47 Resp 20 04/08/17 07:00 BP 109/49 L 04/08/17 09:47 Pulse Ox 94 L 04/08/17 07:00 Weight - Most Recent: 82.27 kg I&O - Last 24 Hours: Intake & Output 04/07/17 04/08/17 04/08/17 22:59 06:59 14:59 Intake Total 225 600 Output Total 825 Balance 225 -225 Lab Results Last 24 Hours: Laboratory Results - last 24 hr 04/07/17 04/07/17 04/07/17 Range/Units 11: 17:05 20:59 WBC (5.0-10.0) 10^3/uL RBC (4.6-6.2) 10^6/uL Hgb (14.0-18.0) g/dL Hct (40.0-54.0) % MCV (80-100) fL MCH (27.0-34.0) pg MCHC (33.0-35.0) g/dL Plt Count (150-450) 10^3/uL Neut % (Auto) (42.2-75.2) % Lymph % (Auto) (20.5-50.1) % [place] % (Auto) (2-8) % Eos % (Auto) (1.0-3.0) % Baso % (Auto) (0.0-1.0) % Sodium (135-145) mmol/L Potassium (3.6-5.0) mmol/L Chloride (101-111) mmol/L Carbon Dioxide (21.0-31.0) mmol/L Anion Gap BUN (7-18) mg/dL Creatinine (0.6-1.3) mg/dL Est Cr Clr Drug Dosing mL/min Estimated GFR (MDRD) Glucose (74-105) mg/dL POC Glucose 348 H 135 H 203 H (83-110) mg/dl Calcium (8.4-10.2) mg/dl 04/08/17 04/08/17 04/08/17 Range/Units 06:05 06:05 08:04 WBC 11.3 H (5.0-10.0) 10^3/uL RBC 4.09 L (4.6-6.2) 10^6/uL Hgb 11.2 L (14.0-18.0) g/dL Hct 34.9 L (40.0-54.0) % MCV 85.3 (80-100) fL MCH 27.4 (27.0-34.0) pg MCHC 32.1 L (33.0-35.0) g/dL Plt Count 192 (150-450) 10^3/uL Neut % (Auto) 84.8 H (42.2-75.2) % Lymph % (Auto) 8.7 L (20.5-50.1) % [place] % (Auto) 5.4 (2-8) % Eos % (Auto) 0.9 L (1.0-3.0) % Baso % (Auto) 0.2 (0.0-1.0) % Sodium 134 L (135-145) mmol/L Potassium 5.0 (3.6-5.0) mmol/L Chloride 99 L (101-111) mmol/L Carbon Dioxide 22.0 (21.0-31.0) mmol/L Anion Gap 18.0 BUN 39 H (7-18) mg/dL Creatinine 1.9 H (0.6-1.3) mg/dL Est Cr Clr Drug Dosing 30.50 mL/min Estimated GFR (MDRD) 34 Glucose 396 H (74-105) mg/dL POC Glucose 409 H* (83-110) mg/dl Calcium 8.1 L (8.4-10.2) mg/dl [place] Results Last 24 Hours: Microbiology 04/06/17 18:36 Clostridium difficile (PCR) - Final Stool / Feces - Stool, Liquid Med Orders - Current: Current Medications Acetaminophen (Tylenol) 650 mg PO Q4H PRN PRN Reason: Pain (Mild 1-3)/fever Albuterol/Ipratropium (Duoneb 3.0-0.5 Mg/3 Ml) 3 ml NEB Q4HRRT PRN PRN Reason: Cough Last Admin: 04/06/17 11:42 Dose: 3 ml Aspirin (Halfprin) 81 mg PO BRK [facility] Last Admin: 04/08/17 08:54 Dose: 81 mg Atorvastatin Calcium (Lipitor) 10 mg PO BEDTIME [facility] Last Admin: 04/07/17 22:01 Dose: 10 mg Buspirone HCl (Buspar) 7.5 mg PO BID [facility] Last Admin: 04/08/17 08:51 Dose: 7.5 mg Carvedilol (Coreg) 6.25 mg PO BIDMEALS [facility] Last Admin: 04/08/17 09:47 Dose: 6.25 mg Famotidine (Pepcid) 20 mg PO DAILY [facility] Last Admin: 04/08/17 08:50 Dose: 20 mg Furosemide (Lasix) 40 mg PO BIDDIURETIC [facility] Last Admin: 04/08/17 08:50 Dose: 40 mg Glipizide (Glucotrol) 5 mg PO DAILY [facility] Last Admin: 04/08/17 08:50 Dose: 5 mg Insulin Aspart (Novolog) 0 unit SUBCUT TIDAC [facility] PRN Reason: Protocol Last Admin: 04/08/17 08:18 Dose: Not Given Latanoprost (Xalatan 0.005% Ophth Soln) 0 ml EYEBOTH BEDTIME [facility] Last Admin: 04/07/17 22:02 Dose: 1 drop Lorazepam (Ativan) 0.5 mg PO Q4H PRN PRN Reason: Anxiety Last Admin: 04/08/17 09:03 Dose: 0.5 mg Multivitamins (Thera) 1 each PO DAILY [facility] Last Admin: 04/08/17 08:54 Dose: 1 each Apixaban (Eliquis) 5 (Mg Tab Own Med) 0 each PO BID [facility] Last Admin: 04/07/17 22:19 Dose: 5 each Ondansetron HCl (Zofran Odt) 4 mg PO Q4H PRN PRN Reason: nausea, able to take PO Last Admin: 04/08/17 09:02 Dose: 4 mg Pantoprazole Sodium (Protonix) 40 mg PO ACBRK [facility] Last Admin: 04/08/17 06:47 Dose: 40 mg Potassium Chloride (Klor-Con 10) 40 meq PO DAILY [facility] Last Admin: 04/08/17 08:54 Dose: 40 meq Sodium Chloride (Saline Flush) 10 ml FLUSH ASDIRECTED PRN PRN Reason: Keep Vein Open Zolpidem Tartrate (Ambien) 5 mg PO BEDTIME [facility] Last Admin: 04/07/17 21:30 Dose: Not Given Discontinued Medications Ascorbic Acid (Vitamin C) 500 mg PO DAILY [facility] Last Admin: 04/06/17 08:45 Dose: 500 mg Doxycycline Hyclate (Vibramycin) 100 mg PO BID [facility] Stop: 04/07/17 22:00 Last Admin: 04/07/17 22:01 Dose: 100 mg Furosemide (Lasix) 40 mg PO BIDDIURETIC [facility] Last Admin: 04/06/17 08:39 Dose: 40 mg Furosemide (Lasix) 40 mg PO TID [facility] Last Admin: 04/07/17 09:53 Dose: 40 mg Insulin Aspart (Novolog) 0 unit SUBCUT TIDAC [facility] PRN Reason: Protocol Last Admin: 04/06/17 17:48 Dose: Not Given Insulin Aspart (Novolog) 20 unit SUBCUT ONETIME ONE Stop: 04/06/17 17:49 Last Admin: 04/06/17 18:08 Dose: 20 units Insulin Aspart (Novolog) 10 unit SUBCUT ONETIME ONE Stop: 04/06/17 20:20 Last Admin: 04/06/17 20:36 Dose: 10 units Insulin Aspart (Novolog) 10 unit SUBCUT ONETIME ONE Stop: 04/06/17 22:38 Last Admin: 04/06/17 22:51 Dose: 10 units Insulin Aspart (Novolog) 12 unit SUBCUT ONETIME ONE Stop: 04/08/17 08:19 Last Admin: 04/08/17 08:51 Dose: 12 units Lorazepam (Ativan) 0.5 mg IVPUSH ONETIME ONE Stop: 04/06/17 17:50 Last Admin: 04/06/17 18:10 Dose: 0.5 mg Losartan Potassium (Cozaar) 100 mg PO DAILY [facility] Last Admin: 04/06/17 14:06 Dose: Not Given Losartan Potassium (Cozaar) 50 mg PO DAILY [facility] Last Admin: 04/07/17 10:03 Dose: Not Given Magnesium Oxide (Magnesium Oxide) [place] Stop: 04/07/17 18:01 Last Admin: 04/07/17 18:40 Dose: 250 mg Non-Formulary Medication (Apixaban [Eliquis]) 10 mg PO BID [facility] Non-Formulary Medication (Nf Drug) 5 each PO BID [facility] Stop: 04/07/17 21:01 Last Admin: 04/06/17 11:30 Dose: 5 each Apixaban (Eliquis) 5 (Mg Tab Own Med) 0 mg PO BID [facility] Stop: 04/06/17 22:00 Last Admin: 04/06/17 20:43 Dose: 10 mg - Exam General: Alert, Oriented Neck: Supple Lungs: [place] (Basilar) Cardiovascular: Regular Rate, Regular Rhythm GI/Abdominal Exam: Normal Bowel Sounds, Soft, Non-Tender Extremities: Pedal Edema (With amputation, up to thigh but appears improved) Skin: Warm Neurological: No New Focal Deficit Psy/Mental Status: Alert, Normal Affect, Normal Mood - Problem List & Annotations (1) CHF (congestive heart failure) SNOMED Code(s): 91851996 Code(s): I50.9 - HEART FAILURE, UNSPECIFIED Status: Acute Current Visit: Yes Qualifiers: Congestive heart failure type: unspecified congestive heart failure type Congestive heart failure chronicity: acute on chronic Qualified Code(s): I50.9 - Heart failure, unspecified (2) Hypoglycemia SNOMED Code(s): 620305893 Code(s): E16.2 - HYPOGLYCEMIA, UNSPECIFIED Status: Acute Current Visit: Yes (3) Pleural effusion SNOMED Code(s): 11576036 Code(s): J90 - PLEURAL EFFUSION, NOT ELSEWHERE CLASSIFIED Status: Acute Current Visit: Yes (4) Acute renal failure SNOMED Code(s): 34714894 Code(s): N17.9 - ACUTE KIDNEY FAILURE, UNSPECIFIED Status: Acute Current Visit: Yes - Problem List Review Problem List Initiated/Reviewed/Updated: Yes - My Orders Last 24 Hours: My Active Orders 04/07/17 14:00 Furosemide [Lasix] 40 mg PO BID[place]URETIC 04/08/17 09:00 glipiZIDE [Glucotrol] 5 mg PO DAILY - Plan Plan:: Uncontrolled blood sugars with diabetes Blood sugars have been variable, low on the night of the admission later uncontrolled high I have increased the supplemental insulin scale. The patient preferred not to use long-acting formulations. He has been managing with the short-acting every 4 times a day at home. I will add morning glipizide Abnormal chest x-ray With left sided opacity - likely relates to effusion The patient does not have active pneumonia symptoms This might relate to a mass, resolved infiltrate, effusion There was no CAT scan of the chest has been done at [place] There are no signs and symptoms of active infection For now hold off on pneumonia treatment Continue diuretics If developing respiratory failure consider thoracentesis Consider repeating chest x-ray in a few days to see if there is response to diuretics Acute on chronic systolic congestive heart failure Echocardiogram about 10 days ago in [place] showed severe systolic dysfunction Continue lower extremity lymphedema wraps Continue to treat with Lasix Follow electrolytes and renal function test Continue Coreg Stopped losartan due to acute renal failure The patient has bradycardia but will try to maintain current Coreg dose for now We will monitor blood pressure with the current Coreg dose Acute renal failure likely due to ATN due to hypotension with a history of chronic kidney disease stage III We will continue the diuretics twice a day, hold the losartan Left elbow bursitis Finished doxycycline treatment Left upper extremity DVT Treat with [place] Coronary artery disease Continue Coreg, aspirin Depression Treat with Buspar Use Ativan as needed for anxiety Continue Ambien as needed for sleep
[2017-04-08] MEDS: APIXABAN 5 MG PO SCH ×2 (12:41→22:06)
[2017-04-08] MEDS: atorvaSTATin 10 MG Tab PO SCH (22:05)
[2017-04-08] MEDS: Zolpidem 5 MG Tab PO SCH (22:05)
[2017-04-08] MEDS: Latanoprost 0.005% Ophth Soln 2.5 ML Bottle EYEBOTH SCH (22:06)
[2017-04-08] MEDS: Nystatin Ointment 15 GM Tube TOP SCH (22:39)
[2017-04-09] MEDS: Pantoprazole 40 MG Tab.CR PO SCH (06:18)
[2017-04-09] MEDS ORDERED: Insulin Aspart 100 Units/ML 3 ML Pen SUBCUT ONE (07:40)
[2017-04-09] MEDS: Insulin Aspart 100 Units/ML 3 ML Pen SUBCUT SCH (09:11)
[2017-04-09] MEDS: APIXABAN 5 MG PO SCH (09:13)
[2017-04-09] MEDS: Potassium Chloride 10 MEQ Tab.ER PO SCH (09:14)
[2017-04-09] MEDS: Multivitamins,Therapeutic Tab PO SCH (09:14)
[2017-04-09] MEDS ORDERED: Potassium Chloride 10 MEQ Tab.ER PO SCH (09:14)
[2017-04-09] MEDS: busPIRone 15 MG Tab PO SCH (09:15)
[2017-04-09] MEDS: glipiZIDE 5 MG Tab PO SCH (09:15)
[2017-04-09] MEDS: Carvedilol 6.25 MG Tab PO SCH (09:15)
[2017-04-09] MEDS: Aspirin 81 MG Tab.EC PO SCH (09:15)
[2017-04-09] MEDS: Furosemide 40 MG Tab PO SCH (09:15)
[2017-04-09] MEDS: Famotidine 20 MG Tab PO SCH (09:15)
[2017-04-09] MEDS ORDERED: Nystatin Topical Powder 30 GM Bottle TOP PRN (09:15)
[2017-04-09] MEDS: Nystatin Ointment 15 GM Tube TOP SCH (09:18)
--- NOTE | 2017-04-09 09:52 | PCM.DCSUM1 ---
Discharge Summary - Hospital Course Free Text/Narrative:: The patient recently was treated at [facility] with pneumonia, sepsis, acute systolic congestive heart failure. The patient continued to have severe edema and was transferred to a longterm. He presented to the emergency room with hypoglycemia. Uncontrolled blood sugars with diabetes Blood sugars have been variable, low on the night of the admission later uncontrolled high I have adjusted the supplemental insulin scale. The patient preferred not to use long-acting formulations. He has been managing with the short-acting every 4 times a day at home. I have added glipizide Follow blood sugars and adjust as needed Acute on chronic systolic congestive heart failure With left sided pleural effusion Echocardiogram about in [place] showed severe systolic dysfunction Continue lower extremity lymphedema wraps Continue to treat with Lasix Follow electrolytes and renal function test Continue Coreg Stopped losartan due to acute renal failure and hypotension The patient has bradycardia but will try to maintain current Coreg dose for now Consider repeating chest x-ray in a few days to see if there is response to diuretics Consider resuming losartan if renal function and blood pressure remains stable Acute renal failure likely due to ATN due to hypotension with a history of chronic kidney disease stage III We will continue the diuretics twice a day, hold the losartan Left elbow bursitis Finished doxycycline treatment Left upper extremity DVT Treat with Eliquis Coronary artery disease Continue Coreg, aspirin Depression Treat with Buspar Continue Ambien as needed for sleep - Discharge Data Discharge Date: 04/09/17 Discharge Disposition: DC/Tfer to Last [facility] 65 Condition: Fair - Discharge Diagnosis/Problem(s) (1) CHF (congestive heart failure) SNOMED Code(s): 02410204 ICD Code: I50.9 - HEART FAILURE, UNSPECIFIED Status: Acute Current Visit : Yes Qualifiers: Congestive heart failure type: unspecified congestive heart failure type Congestive heart failure chronicity: acute on chronic Qualified Code(s): I50.9 - Heart failure, unspecified (2) Hypoglycemia SNOMED Code(s): 503602288 ICD Code: E16.2 - HYPOGLYCEMIA, UNSPECIFIED Status: Acute Current Visit: Yes (3) Pleural effusion SNOMED Code(s): 61956325 ICD Code: J90 - PLEURAL EFFUSION, NOT ELSEWHERE CLASSIFIED Status: Acute Current Visit: Yes (4) Acute renal failure SNOMED Code(s): 89275061 ICD Code: N17.9 - ACUTE KIDNEY FAILURE, UNSPECIFIED Status: Acute Current Visit: Yes - Patient Summary/Data Consults: Consultations 04/06/17 05:41 OT Evaluation and Treatment [CONS] Routine PT Evaluation and Treatment [CONS] Routine - Patient Instructions Diet: Heart Healthy Diet, Diabetic Diet Activity: As Tolerated - Discharge Plan Prescriptions/Med Rec: glipiZIDE [Glucotrol] 5 mg PO BID #60 tablet Nystatin [Nystop] 1 gm TOP TID PRN #1 bottle PRN Reason: groin, axilla, skinfolds Potassium Chloride [Klor-Con 10] 20 meq PO DAILY #30 tab.er Home Medications: Home Meds Acetaminophen 325 mg PO Q6HR PRN 04/06/17 [History] Albuterol Sulfate 2.5 mg NEB Q6H PRN 04/06/17 [History] Apixaban [Eliquis] 5 mg PO BID 04/06/17 [History] Ascorbic Acid 500 mg PO DAILY 04/06/17 [History] Aspirin [Halfprin] 81 mg PO BRK 04/06/17 [History] Carvedilol [Coreg] 6.25 mg PO BIDMEALS 04/06/17 [History] Docusate Sodium/Sennosides [Senna Plus] 1 tab PO BID PRN 04/06/17 [History] Furosemide [Lasix] 40 mg PO BID 04/06/17 [History] Latanoprost [Xalatan 0.005% Ophth Soln] 1 drop EYEBOTH BEDTIME 04/06/17 [History ] Multivitamin [Multivitamins] 1 each PO DAILY 04/06/17 [History] Pantoprazole Sodium 40 mg PO DAILY 04/06/17 [History] Polyethylene Glycol 3350 [Miralax] 17 gm PO BID PRN 04/06/17 [History] Ranitidine HCl [Zantac] 150 mg PO BID 04/06/17 [History] Zolpidem Tartrate [Ambien] 5 mg PO QPM 04/06/17 [History] atorvaSTATin Calcium [Atorvastatin Calcium] 10 mg PO QPM 04/06/17 [History] busPIRone HCl [Buspirone HCl] 7.5 mg PO BID 04/06/17 [History] Insulin Aspart [NovoLOG] 0 unit SUBCUT TIDAC pen 04/09/17 [Rx] Nystatin [Nystop] 1 gm TOP TID PRN #1 bottle 04/09/17 [Rx] Potassium Chloride [Klor-Con 10] 20 meq PO DAILY #30 tab.er 04/09/17 [Rx] glipiZIDE [Glucotrol] 5 mg PO BID #60 tablet 04/09/17 [Rx] Patient Handouts: Hypoglycemia, Heart Failure, [id number] Referrals: PCP,Unobtain [Primary Care Provider] - (in 2-3 days with BMP re: diuretics) - Discharge Summary/Plan Comment DC Time >30 min.: No - General Info Date of Service: 04/09/17 Admission Dx/Problem (Free Text: Admission Diagnosis/Problem Admission Diagnosis/Problem CHF, Congestive heart failure Subjective Update: Blood sugars are still elevated. This morning feeling good. Denies shortness of breath. No chest pain. - Review of Systems General: Reports: Weakness. Denies: Fever Pulmonary: Denies: Shortness of Breath, Cough Cardiovascular: Denies: Chest Pain Gastrointestinal: Denies: Abdominal Pain Neurological: Denies: Confusion - Patient Data Vitals - Most Recent: Last Vital Signs Temp 36.3 C 04/09/17 07:00 Pulse 73 04/09/17 09:15 Resp 20 04/09/17 07:00 BP 102/78 04/09/17 09:15 Pulse Ox 92 L 04/09/17 07:00 Weight - Most Recent: 81.675 kg I&O - Last 24 hours: Intake & Output 04/08/17 04/09/17 04/09/17 22:59 06:59 14:59 Intake Total 300 Output Total 375 450 Balance -375 -150 Lab Results - Last 24 hrs: Laboratory Results - last 24 hr 04/08/17 04/08/17 04/08/17 Range/Units 10:40 17:04 21:12 WBC (5.0-10.0) 10^3/uL RBC (4.6-6.2) 10^6/uL Hgb (14.0-18.0) g/dL Hct (40.0-54.0) % MCV (80-100) fL MCH (27.0-34.0) pg MCHC (33.0-35.0) g/dL Plt Count (150-450) 10^3/uL Neut % (Auto) (42.2-75.2) % Lymph % (Auto) (20.5-50.1) % Bates % (Auto) (2-8) % Eos % (Auto) (1.0-3.0) % Baso % (Auto) (0.0-1.0) % Sodium (135-145) mmol/L Potassium (3.6-5.0) mmol/L Chloride (101-111) mmol/L Carbon Dioxide (21.0-31.0) mmol/L Anion Gap BUN (7-18) mg/dL Creatinine (0.6-1.3) mg/dL Est Cr Clr Drug Dosing mL/min Estimated GFR (MDRD) Glucose (74-105) mg/dL POC Glucose 328 H 169 H 231 H (83-110) mg/dl Calcium (8.4-10.2) mg/dl 04/09/17 04/09/17 04/09/17 Range/Units 06:10 06:10 07:35 WBC 11.5 H (5.0-10.0) 10^3/uL RBC 4.22 L (4.6-6.2) 10^6/uL Hgb 11.4 L (14.0-18.0) g/dL Hct 36.0 L (40.0-54.0) % MCV 85.3 (80-100) fL MCH 27.0 (27.0-34.0) pg MCHC 31.7 L (33.0-35.0) g/dL Plt Count 208 (150-450) 10^3/uL Neut % (Auto) 85.8 H (42.2-75.2) % Lymph % (Auto) 8.4 L (20.5-50.1) % [place] % (Auto) 5.0 (2-8) % Eos % (Auto) 0.6 L (1.0-3.0) % Baso % (Auto) 0.2 (0.0-1.0) % Sodium 132 L (135-145) mmol/L Potassium 5.1 H (3.6-5.0) mmol/L Chloride 97 L (101-111) mmol/L Carbon Dioxide 20.0 L (21.0-31.0) mmol/L Anion Gap 20.1 BUN 41 H (7-18) mg/dL Creatinine 2.0 H (0.6-1.3) mg/dL Est Cr Clr Drug Dosing 28.98 mL/min Estimated GFR (MDRD) 32 Glucose 445 H* (74-105) mg/dL POC Glucose 423 H* (83-110) mg/dl Calcium 8.3 L (8.4-10.2) mg/dl GENE Results - Last 24 hrs: Microbiology 04/06/17 18:36 Clostridium difficile (PCR) - Final Stool / Feces - Stool, Liquid Med Orders - Current: Current Medications Acetaminophen (Tylenol) 650 mg PO Q4H PRN PRN Reason: Pain (Mild 1-3)/fever Albuterol/Ipratropium (Duoneb 3.0-0.5 Mg/3 Ml) 3 ml NEB Q4HRRT PRN PRN Reason: Cough Last Admin: 04/06/17 11:42 Dose: 3 ml Aspirin (Halfprin) 81 mg PO BRK [facility] Last Admin: 04/09/17 09:15 Dose: 81 mg Atorvastatin Calcium (Lipitor) 10 mg PO BEDTIME [facility] Last Admin: 04/08/17 22:05 Dose: 10 mg Buspirone HCl (Buspar) 7.5 mg PO BID [facility] Last Admin: 04/09/17 09:15 Dose: 7.5 mg Carvedilol (Coreg) 6.25 mg PO BIDMEALS [facility] Last Admin: 04/09/17 09:15 Dose: 6.25 mg Famotidine (Pepcid) 20 mg PO DAILY [facility] Last Admin: 04/09/17 09:15 Dose: 20 mg Furosemide (Lasix) 40 mg PO BIDDIURETIC [facility] Last Admin: 04/09/17 09:15 Dose: 40 mg Glipizide (Glucotrol) 5 mg PO BID [facility] Insulin Aspart (Novolog) 0 unit SUBCUT TIDAC [facility] PRN Reason: Protocol Last Admin: 04/09/17 09:11 Dose: Not Given Latanoprost (Xalatan 0.005% Ophth Soln) 0 ml EYEBOTH BEDTIME [facility] Last Admin: 04/08/17 22:06 Dose: 1 drop Lorazepam (Ativan) 0.5 mg PO Q4H PRN PRN Reason: Anxiety Last Admin: 04/08/17 22:05 Dose: 0.5 mg Multivitamins (Thera) 1 each PO DAILY [facility] Last Admin: 04/09/17 09:14 Dose: 1 each Apixaban (Eliquis) 5 Mg Tab Nonform Med 0 each PO BID [facility] Last Admin: 04/09/17 09:13 Dose: 1 each Nystatin (Nystop) 0 gm TOP TID PRN PRN Reason: groin, axilla, skinfolds Ondansetron HCl (Zofran Odt) 4 mg PO Q4H PRN PRN Reason: nausea, able to take PO Last Admin: 04/08/17 09:02 Dose: 4 mg Pantoprazole Sodium (Protonix) 40 mg PO ACBRK [facility] Last Admin: 04/09/17 06:18 Dose: 40 mg Potassium Chloride (Klor-Con 10) 20 meq PO DAILY [facility] Sodium Chloride (Saline Flush) 10 ml FLUSH ASDIRECTED PRN PRN Reason: Keep Vein Open Zolpidem Tartrate (Ambien) 5 mg PO BEDTIME [facility] Last Admin: 04/08/17 22:05 Dose: 5 mg Discontinued Medications Ascorbic Acid (Vitamin C) 500 mg PO DAILY [facility] Last Admin: 04/06/17 08:45 Dose: 500 mg Doxycycline Hyclate (Vibramycin) 100 mg PO BID GLORIA Stop: 04/07/17 22:00 Last Admin: 04/07/17 22:01 Dose: 100 mg Furosemide (Lasix) 40 mg PO BIDDIURETIC [facility] Last Admin: 04/06/17 08:39 Dose: 40 mg Furosemide (Lasix) 40 mg PO TID [facility] Last Admin: 04/07/17 09:53 Dose: 40 mg Glipizide (Glucotrol) 5 mg PO DAILY [facility] Last Admin: 04/09/17 09:15 Dose: 5 mg Insulin Aspart (Novolog) 0 unit SUBCUT TIDAC [facility] PRN Reason: Protocol Last Admin: 04/06/17 17:48 Dose: Not Given Insulin Aspart (Novolog) 20 unit SUBCUT ONETIME ONE Stop: 04/06/17 17:49 Last Admin: 04/06/17 18:08 Dose: 20 units Insulin Aspart (Novolog) 10 unit SUBCUT ONETIME ONE Stop: 04/06/17 20:20 Last Admin: 04/06/17 20:36 Dose: 10 units Insulin Aspart (Novolog) 10 unit SUBCUT ONETIME ONE Stop: 04/06/17 22:38 Last Admin: 04/06/17 22:51 Dose: 10 units Insulin Aspart (Novolog) 12 unit SUBCUT ONETIME ONE Stop: 04/08/17 08:19 Last Admin: 04/08/17 08:51 Dose: 12 units Insulin Aspart (Novolog) 15 unit SUBCUT ONETIME ONE Stop: 04/09/17 07:41 Last Admin: 04/09/17 09:16 Dose: 15 units Lorazepam (Ativan) 0.5 mg IVPUSH ONETIME ONE Stop: 04/06/17 17:50 Last Admin: 04/06/17 18:10 Dose: 0.5 mg Losartan Potassium (Cozaar) 100 mg PO DAILY [facility] Last Admin: 04/06/17 14:06 Dose: Not Given Losartan Potassium (Cozaar) 50 mg PO DAILY [facility] Last Admin: 04/07/17 10:03 Dose: Not Given Magnesium Oxide (Magnesium Oxide) [facility] [place] Stop: 04/07/17 18:01 Last Admin: 04/07/17 18:40 Dose: 250 mg Non-Formulary Medication (Apixaban [Eliquis]) 10 mg PO BID [facility] Non-Formulary Medication (Nf Drug) 5 each PO BID [facility] Stop: 04/07/17 21:01 Last Admin: 04/06/17 11:30 Dose: 5 each Apixaban (Eliquis) 5 (Mg Tab Own Med) 0 mg PO BID [facility] Stop: 04/06/17 22:00 Last Admin: 04/06/17 20:43 Dose: 10 mg Nystatin (Nystatin Ointment) 0 gm TOP BID [facility] Last Admin: 04/09/17 09:18 Dose: Not Given Potassium Chloride (Klor-Con 10) 40 meq PO DAILY [facility] Last Admin: 04/09/17 09:14 Dose: 40 meq - Exam General: Reports: Alert, Oriented Neck: Reports: Supple Lungs: Reports: Decreased Breath Sounds Cardiovascular: Reports: Regular Rate, Regular Rhythm GI/Abdominal Exam: Normal Bowel Sounds, Soft Extremities: Pedal Edema, Other (Bilateral amputation) Skin: Reports: Warm, Other (Left elbow small area of redness, left upper extremity edema, left axillary area appear to have redness with the yeast appearing infection) Neurological: Reports: No New Focal Deficit Psy/Mental Status: Reports: Alert, Normal Affect, Normal Mood *Q Meaningful Use (DIS) - VTE *Q VTE Criteria *Q: - Stroke *Q Stroke Criteria *Q: - AMI *Q AMI Criteria *Q:
--- NOTE | 2017-04-09 10:15 | EKG ---
04/06/2017- ALICIA DUNN - EKG per my reading shows sinus rhythm at a rate of 59. [facility] /[id number]
[2017-04-09] MEDS ORDERED: glipiZIDE 5 MG Tab PO SCH (21:00)
== END 2017-04-09 10:40 | DRG 637 ==
LOC: DL.ED 02:10 → UNDOADMIN 05:22 → DL.MS 05:22
PROVIDERS: ADMIT Internal Medicine; ATTEND Internal Medicine
DX: E16.2 Hypoglycemia, unspecified (principal); I50.9 Heart failure, unspecified; J18.9 Pneumonia, unspecified organism; I95.9 Hypotension, unspecified; E11.649 Type 2 diabetes mellitus with hypoglycemia without coma; I50.23 Acute on chronic systolic (congestive) heart failure; N17.9 Acute kidney failure, unspecified; I82.622 Acute embolism and thrombosis of deep veins of left upper extremity; N18.3 Chronic kidney disease, stage 3 (moderate); M71.522 Other bursitis, not elsewhere classified, left elbow; I25.10 Atherosclerotic heart disease of native coronary artery without angina pectoris; F32.9 Major depressive disorder, single episode, unspecified; Z79.4 Long term (current) use of insulin; Z89.512 Acquired absence of left leg below knee; Z89.511 Acquired absence of right leg below knee; E11.65 Type 2 diabetes mellitus with hyperglycemia; R19.7 Diarrhea, unspecified
CPT/HCPCS: 36415; 71010; 80048; 80053; 82947; 82962; 83735; 83880; 84100; 84484; 85025; 87493; 93005; 93010; 94010; 97110-GP; 97162-GP; 97166-GO; 99284; 99285; A9270-GY; J1815-GY; J2060

== ENCOUNTER 2017-04-09 15:08 | Observation (INO) | payer MEDICARE, OTHER ==
[2017-04-09] MEDS ORDERED: Sodium Chloride 0.9% 1,000 ML IV ONE (15:32)
--- NOTE | 2017-04-09 15:39 | EDM.PDOC ---
ED HPI GENERAL MEDICAL PROBLEM - General Chief Complaint: Diabetic Complaint Time Seen by Provider: 04/09/17 15:25 Source of Information: Reports: Patient, Fpc Records History Limitations: Reports: No Limitations - History of Present Illness INITIAL COMMENTS - FREE TEXT/NARRATIVE: This 81 yo male patient was brought to the ED by [facility] due to an elevated blood sugar and altered mentation. The patient was alert and oriented upon arrival in the ED. The patient's blood sugar was in the upper 400's. This patient was discharged from our hospital 2 hours prior to his return to the ED. Upon arrival in the ED, Dr. Tinsley (Hospitalist) came to the ED to evaluate the patient. Dr. Tinsley advised that the patient appears as he did on discharge. Onset: Today Duration: Constant Location: Reports: Other Quality: Reports: Other Severity: Mild Improves with: Reports: None Worsens with: Reports: None Associated Symptoms: Reports: No Other Symptoms Treatments W[employer] DESIGNER: Reports: Insulin - Related Data Allergies Allergy/AdvReac Type Severity Reaction Status Date / Time meperidine [From Demerol] Allergy Unknown Cannot Verified 04/09/17 15:21 Remember Home Meds: Home Meds Acetaminophen 325 mg PO Q6HR PRN 04/06/17 [History] Albuterol Sulfate 2.5 mg NEB Q6H PRN 04/06/17 [History] Apixaban [Eliquis] 5 mg PO BID 04/06/17 [History] Ascorbic Acid 500 mg PO DAILY 04/06/17 [History] Aspirin [Halfprin] 81 mg PO BRK 04/06/17 [History] Carvedilol [Coreg] 6.25 mg PO BIDMEALS 04/06/17 [History] Docusate Sodium/Sennosides [Senna Plus] 1 tab PO BID PRN 04/06/17 [History] Furosemide [Lasix] 40 mg PO BID 04/06/17 [History] Latanoprost [Xalatan 0.005% Ophth Soln] 1 drop EYEBOTH BEDTIME 04/06/17 [History ] Multivitamin [Multivitamins] 1 each PO DAILY 04/06/17 [History] Pantoprazole Sodium 40 mg PO DAILY 04/06/17 [History] Polyethylene Glycol 3350 [Miralax] 17 gm PO BID PRN 04/06/17 [History] Ranitidine HCl [Zantac] 150 mg PO BID 04/06/17 [History] Zolpidem Tartrate [Ambien] 5 mg PO QPM 04/06/17 [History] atorvaSTATin Calcium [Atorvastatin Calcium] 10 mg PO QPM 04/06/17 [History] busPIRone HCl [Buspirone HCl] 7.5 mg PO BID 04/06/17 [History] Insulin Aspart [NovoLOG] 0 unit SUBCUT TIDAC pen 04/09/17 [Rx] Nystatin [Nystop] 1 gm TOP TID PRN #1 bottle 04/09/17 [Rx] Potassium Chloride [Klor-Con 10] 20 meq PO DAILY #30 tab.er 04/09/17 [Rx] glipiZIDE [Glucotrol] 5 mg PO BID #60 tablet 04/09/17 [Rx] Past Medical History HEENT History: Reports: Cataract, Glaucoma, Hard of Hearing, Impaired Vision Cardiovascular History: Reports: Blood Clots/VTE/DVT, Heart Failure, High Cholesterol, Other (See Below) Other Cardiovascular History: left arm blood clot. hypokalemia Respiratory History: Reports: Pneumonia, Recurrent Gastrointestinal History: Reports: Chronic Constipation, GERD Genitourinary History: Reports: Acute Renal Failure Musculoskeletal History: Reports: Amputation, Other (See Below) Other Musculoskeletal History: bilateral BKA. olecranon bursitis Psychiatric History: Reports: Anxiety, Other (See Below) Other Psychiatric History: insomnia Endocrine/Metabolic History: Reports: Diabetes, Type II, Other (See Below) Other Endocrine/Metabolic History: acidosis. penitentiary insulin use - Past Surgical History Cardiovascular Surgical History: Reports: None Respiratory Surgical History: Reports: None Endocrine Surgical History: Reports: None Musculoskeletal Surgical History: Reports: Amputation Social & Family History - Family History Family Medical History: Noncontributory - Tobacco Use Smoking Status *Q: Never Smoker Second Hand Smoke Exposure: No - Caffeine Use Caffeine Use: Reports: None - Recreational Drug Use Recreational Drug Use: No ED ROS GENERAL - Review of Systems Review Of Systems: ROS reveals no pertinent complaints other than HPI. ED EXAM GENERAL NO PERIP PULSE - Physical Exam Exam: See Below Exam Limited By: No Limitations General Appearance: Alert, WD/WN, No Apparent Distress Eye Exam: Bilateral Eye: EOMI, Normal Inspection, PERRL Ears: Normal External Exam, Normal Canal, Hearing Grossly Normal, Normal TMs Nose: Normal Inspection, Normal Mucosa, No Blood Throat/Mouth: Normal Inspection, Normal Lips, Normal Teeth, Normal Gums, Normal Oropharynx, Normal Voice, No Airway Compromise Head: Atraumatic, Normocephalic Neck: Normal Inspection, Supple, Non-Tender, Full Range of Motion Respiratory/Chest: No Respiratory Distress Cardiovascular: Normal Peripheral Pulses, Regular Rate, Rhythm, No Edema, No Gallop, No JVD, No Murmur, No Rub GI/Abdominal: Normal Bowel Sounds, Soft, Non-Tender, No Organomegaly, No Distention, No Abnormal Bruit, No Mass (Male) Exam: Deferred Rectal (Males) Exam: Deferred Back Exam: Normal Inspection, Full Range of Motion, NT Extremities: Other (The patient has bilateral below the knee amputations. The patient has bruising on his upper extremities with a bandage on the left forearm. ) Neurological: Alert, Oriented, CN II-XII Intact, Normal Cognition Psychiatric: Normal Affect Skin Exam: Warm, Dry, Intact, Other (The patient has numberous areas of bruising on his abdomen. ) Course - Vital Signs Last Recorded V/S: Last Vital Signs Temp 36.8 C 04/09/17 16:29 Pulse 61 04/09/17 16:29 Resp 16 04/09/17 16:29 BP 103/50 L 04/09/17 16:29 Pulse Ox 98 04/09/17 16:29 - Orders/Labs/Meds Orders: Active Orders 24 hr Category Date Time Status Glucose [Blood Glucose Check, Bedside] [RC] ONETIME Care 04/09/17 17:19 Ordered Labs: Laboratory Tests 04/09/17 04/09/17 04/09/17 Range/Units 15:09 15:40 15:40 WBC 11.5 H (5.0-10.0) 10^3/uL RBC 3.94 L (4.6-6.2) 10^6/uL Hgb 10.8 L (14.0-18.0) g/dL Hct 33.9 L (40.0-54.0) % MCV 86.0 (80-100) fL MCH 27.4 (27.0-34.0) pg MCHC 31.9 L (33.0-35.0) g/dL Plt Count 243 (150-450) 10^3/uL Neut % (Auto) 85.6 H (42.2-75.2) % Lymph % (Auto) 8.0 L (20.5-50.1) % [place] % (Auto) 6.1 (2-8) % Eos % (Auto) 0.1 L (1.0-3.0) % Baso % (Auto) 0.2 (0.0-1.0) % Sodium 132 L (135-145) mmol/L Potassium 5.0 (3.6-5.0) mmol/L Chloride 95 L (101-111) mmol/L Carbon Dioxide 16.0 L (21.0-31.0) mmol/L Anion Gap 26.0 BUN 47 H (7-18) mg/dL Creatinine 2.4 H (0.6-1.3) mg/dL Est Cr Clr Drug Dosing 24.15 mL/min Estimated GFR (MDRD) 26 BUN/Creatinine Ratio 19.58 Glucose 494 H* (74-105) mg/dL POC Glucose 463 H* (83-110) mg/dl Calcium 8.3 L (8.4-10.2) mg/dl Total Bilirubin 1.6 H (0.2-1.0) mg/dL AST 27 (10-42) IU/L ALT 17 (10-60) IU/L Alkaline Phosphatase 88 (42-121) IU/L Total Protein 5.4 L (6.7-8.2) g/dl Albumin 2.5 L (3.2-5.5) g/dl Globulin 2.9 Albumin/Globulin Ratio 0.86 Urine Color (YELLOW) Urine Appearance (CLEAR) Urine pH (5.0-9.0) Ur Specific [place] (1.005-1.030) Urine Protein (NEGATIVE) Urine Glucose (UA) (NEGATIVE) Urine Ketones (NEGATIVE) Urine Occult Blood (NEGATIVE) Urine Nitrite (NEGATIVE) Urine Bilirubin (NEGATIVE) Urine Urobilinogen (0.2-1.0) mg/dL Ur Leukocyte Esterase (NEGATIVE) Urine RBC /HPF Urine WBC (0-5/HPF) /HPF Ur Epithelial Cells /HPF Urine Bacteria (0-FEW/HPF) /HPF 04/09/17 04/09/17 04/09/17 Range/Units 16:23 16:42 17:30 WBC (5.0-10.0) 10^3/uL RBC (4.6-6.2) 10^6/uL Hgb (14.0-18.0) g/dL Hct (40.0-54.0) % MCV (80-100) fL MCH (27.0-34.0) pg MCHC (33.0-35.0) g/dL Plt Count (150-450) 10^3/uL Neut % (Auto) (42.2-75.2) % Lymph % (Auto) (20.5-50.1) % [place] % (Auto) (2-8) % Eos % (Auto) (1.0-3.0) % Baso % (Auto) (0.0-1.0) % Sodium (135-145) mmol/L Potassium (3.6-5.0) mmol/L Chloride (101-111) mmol/L Carbon Dioxide (21.0-31.0) mmol/L Anion Gap BUN (7-18) mg/dL Creatinine (0.6-1.3) mg/dL Est Cr Clr Drug Dosing mL/min Estimated GFR (MDRD) BUN/Creatinine Ratio Glucose (74-105) mg/dL POC Glucose 417 H* 347 H (83-110) mg/dl Calcium (8.4-10.2) mg/dl Total Bilirubin (0.2-1.0) mg/dL AST (10-42) IU/L ALT (10-60) IU/L Alkaline Phosphatase (42-121) IU/L Total Protein (6.7-8.2) g/dl Albumin (3.2-5.5) g/dl Globulin Albumin/Globulin Ratio Urine Color Yellow (YELLOW) Urine Appearance Clear (CLEAR) Urine pH 5.0 (5.0-9.0) Ur Specific [place] 1.010 (1.005-1.030) Urine Protein Negative (NEGATIVE) Urine Glucose (UA) 500 H (NEGATIVE) Urine Ketones 15 H (NEGATIVE) Urine Occult Blood Trace-lysed H (NEGATIVE) Urine Nitrite Negative (NEGATIVE) Urine Bilirubin Negative (NEGATIVE) Urine Urobilinogen 0.2 (0.2-1.0) mg/dL Ur Leukocyte Esterase Trace H (NEGATIVE) Urine RBC 0-5 /HPF Urine WBC 5-10 H (0-5/HPF) /HPF Ur Epithelial Cells Few /HPF Urine Bacteria Few (0-FEW/HPF) /HPF Meds: Medications Discontinued Medications Generic Name Dose Route Start Last Admin Trade Name Lianne PRN Reason Stop Dose Admin Sodium Chloride 1,000 mls @ 999 mls/hr 04/09/17 15:32 04/09/17 15:44 Normal Saline IV 04/09/17 16:32 999 mls/hr .BOLUS ONE Administration Insulin Human Regular 5 unit 04/09/17 16:14 04/09/17 16:25 Humulin R IV 04/09/17 16:15 5 units ONETIME ONE Administration Protocol Departure - Departure Time of Disposition: 17:38 Disposition: DC/Tfer to [facility] 65 Condition: Fair Clinical Impression: Hyperglycemia - Discharge Information Forms: ED Department Discharge Care Plan Goals: The patient and family were informed of the examination and lab results during the visit. The patient was discharged back to the correction for continue care. If the patient has any additional symptoms or concerns, the patient should follow-up with his primary care facility or return to the emergency department. - My Orders Last 24 Hours: My Active Orders 04/09/17 17:19 Glucose [Blood Glucose Check, Bedside] [] ONETIME - Assessment/Plan Last 24 Hours: My Active Orders 04/09/17 17:19 Glucose [Blood Glucose Check, Bedside] [RC] ONETIME
[2017-04-09] MEDS ORDERED: Insulin Regular, Human 100 Units/ML 3 ML Vial IV ONE (16:14)
[2017-04-09] MEDS ORDERED: Ondansetron 4 MG/2 ML SDV IV ONE (17:45)
[2017-04-09] MEDS ORDERED: Zolpidem 5 MG Tab PO PRN (18:37)
[2017-04-09] MEDS ORDERED: Nystatin Topical Powder 30 GM Bottle TOP PRN (18:37)
[2017-04-09] MEDS ORDERED: Ondansetron 4 MG Tab.DIS PO PRN (18:47)
[2017-04-09] MEDS ORDERED: Ondansetron 4 MG/2 ML SDV IVPUSH PRN (18:47)
--- NOTE | 2017-04-09 18:57 | PCM.HP ---
H&P History of Present Illness - General Date of Service: 04/09/17 Admit Problem/Dx: Admission Diagnosis/Problem Admission Diagnosis/Problem Confusion Source of Information: Patient, Family, Provider (ER physician) - History of Present Illness Initial Comments - Free Text/Narative: The patient is a 81-year-old gentleman who has a history of diabetes. The patient was recently hospitalized in [facility] and was treated for sepsis congestive heart failure. He was discharged to senior living few days later the patient was noted to have hypoglycemia was admitted to [facility]. He was diuresed and diuretics adjusted. The patient initially was hypoglycemic And then hyperglycemic. Glipizide started. The patient did not want to be on a long acting insulin regimen. The patient was discharged to senior living on 09 April. Few hours later the patient was noted to have blood sugars above 500. 20 units of subcutaneous NovoLog was given in the senior living. Repeat blood sugar was still above 400. The patient was sent to the emergency room. He was given 5 units of IV NovoLog. With that the blood sugar dropped to 140s. The patient was noted to have confusion and nausea. Subsequent blood sugar was 300s. Confusion and nausea improved but it was felt that it would be safer to observe the patient before discharging to senior living. - Related Data Allergies/Adverse Reactions: Allergies Allergy/AdvReac Type Severity Reaction Status Date / Time meperidine [From Demerol] Allergy Unknown Cannot Verified 04/09/17 15:21 Remember Home Medications: Home Meds Acetaminophen 325 mg PO Q6HR PRN 04/06/17 [History] Albuterol Sulfate 2.5 mg NEB Q6H PRN 04/06/17 [History] Apixaban [Eliquis] 5 mg PO BID 04/06/17 [History] Ascorbic Acid 500 mg PO DAILY 04/06/17 [History] Aspirin [Halfprin] 81 mg PO BRK 04/06/17 [History] Carvedilol [Coreg] 6.25 mg PO BIDMEALS 04/06/17 [History] Docusate Sodium/Sennosides [Senna Plus] 1 tab PO BID PRN 04/06/17 [History] Furosemide [Lasix] 40 mg PO BID 04/06/17 [History] Latanoprost [Xalatan 0.005% Ophth Soln] 1 drop EYEBOTH BEDTIME 04/06/17 [History ] Multivitamin [Multivitamins] 1 each PO DAILY 04/06/17 [History] Pantoprazole Sodium 40 mg PO DAILY 04/06/17 [History] Polyethylene Glycol 3350 [Miralax] 17 gm PO BID PRN 04/06/17 [History] Ranitidine HCl [Zantac] 150 mg PO BID 04/06/17 [History] Zolpidem Tartrate [Ambien] 5 mg PO QPM 04/06/17 [History] atorvaSTATin Calcium [Atorvastatin Calcium] 10 mg PO QPM 04/06/17 [History] busPIRone HCl [Buspirone HCl] 7.5 mg PO BID 04/06/17 [History] Insulin Aspart [NovoLOG] 0 unit SUBCUT TIDAC pen 04/09/17 [Rx] Nystatin [Nystop] 1 gm TOP TID PRN #1 bottle 04/09/17 [Rx] Potassium Chloride [Klor-Con 10] 20 meq PO DAILY #30 tab.er 04/09/17 [Rx] glipiZIDE [Glucotrol] 5 mg PO BID #60 tablet 04/09/17 [Rx] Past Medical History HEENT History: Reports: Cataract, Glaucoma, Hard of Hearing, Impaired Vision Cardiovascular History: Reports: Blood Clots/VTE/DVT, Heart Failure, High Cholesterol, Other (See Below) Other Cardiovascular History: left arm blood clot. hypokalemia Respiratory History: Reports: Pneumonia, Recurrent Gastrointestinal History: Reports: Chronic Constipation, GERD Genitourinary History: Reports: Acute Renal Failure Musculoskeletal History: Reports: Amputation, Other (See Below) Other Musculoskeletal History: bilateral BKA. olecranon bursitis Psychiatric History: Reports: Anxiety, Other (See Below) Other Psychiatric History: insomnia Endocrine/Metabolic History: Reports: Diabetes, Type II, Other (See Below) Other Endocrine/Metabolic History: acidosis. halfway insulin use - Past Surgical History Cardiovascular Surgical History: Reports: None Respiratory Surgical History: Reports: None Endocrine Surgical History: Reports: None Musculoskeletal Surgical History: Reports: Amputation Social & Family History - Family History Family Medical History: Noncontributory - Tobacco Use Smoking Status *Q: Never Smoker Second Hand Smoke Exposure: No - Caffeine Use Caffeine Use: Reports: None - Recreational Drug Use Recreational Drug Use: No H&P Review of Systems - Review of Systems: Review Of Systems: See Below General: Denies: Fever Pulmonary: Denies: Shortness of Breath Cardiovascular: Denies: Chest Pain Gastrointestinal: Reports: Nausea. Denies: Abdominal Pain Psychiatric: Reports: Confusion Neurological: Reports: Dizziness Exam - Exam Exam: See Below - Vital Signs Vital Signs: Last Vital Signs Temp 36.6 C 04/09/17 18:25 Pulse 58 L 04/09/17 18:25 Resp 20 04/09/17 18:25 BP 113/51 L 04/09/17 18:25 Pulse Ox 100 04/09/17 18:25 Weight: 81.647 kg - Exam General: Alert, Oriented Neck: Supple Lungs: Normal Respiratory Effort, Decreased Breath Sounds Cardiovascular: Regular Rate GI/Abdominal Exam: Normal Bowel Sounds, Soft, Non-Tender Extremities: Other (Bilateral amputation with lymphedema wraps, edema up to the thigh.) Neuro Extensive - Mental Status: Alert, Oriented x3, Normal Mood/Affect - Patient Data Result Diagrams: 04/09/17 15:40 04/09/17 15:40 *Q Meaningful Use (ADM) - VTE *Q VTE Criteria *Q: - Stroke *Q Stroke Criteria *Q: - AMI *Q AMI Criteria *Q: - Problem List (1) Hyperglycemia SNOMED Code(s): 73094648 ICD Code: R73.9 - HYPERGLYCEMIA, UNSPECIFIED Status: Acute Current Visit : Yes (2) CHF (congestive heart failure) SNOMED Code(s): 20086794 ICD Code: I50.9 - HEART FAILURE, UNSPECIFIED Status: Acute Current Visit : No Qualifiers: Congestive heart failure type: unspecified congestive heart failure type Congestive heart failure chronicity: acute on chronic Qualified Code(s): I50.9 - Heart failure, unspecified Problem List Initiated/Reviewed/Updated: Yes Orders Last 24hrs: Active Orders 24 hr Category Date Time Status Patient Status [ADT] Routine ADT 04/09/17 18:40 Active Glucose [Blood Glucose Check, Bedside] [RC] QIDACANDBED Care 04/09/17 18:40 Active Oxygen Therapy [RC] PRN Care 04/09/17 18:40 Active Up With Assistance [RC] ASDIRECTED Care 04/09/17 18:40 Active VTE/DVT Education [RC] PER UNIT ROUTINE Care 04/09/17 18:40 Active Vital Signs [RC] Q4H Care 04/09/17 18:40 Active OT Evaluation and Treatment [CONS] Routine Cons 04/09/17 18:47 Active Consistent Carbohydrate Diet [DIET] Diet 04/09/17 Breakfast Active BASIC METABOLIC PANEL,BMP [CHEM] AM Lab 04/10/17 05:15 Ordered CBC WITH AUTO DIFF [HEME] AM Lab 04/10/17 05:15 Ordered Acetaminophen [Tylenol] Med 04/09/17 18:40 Ordered 650 mg PO Q4H PRN Apixaban [Eliquis] Med 04/09/17 21:00 Ordered 5 mg PO BID Ascorbic Acid [Vitamin C] Med 04/10/17 09:00 Ordered 500 mg PO DAILY Aspirin [Halfprin] Med 04/10/17 08:00 Ordered 81 mg PO BRK Carvedilol [Coreg] Med 04/10/17 08:00 Ordered 6.25 mg PO BIDMEALS Furosemide [Lasix] Med 04/09/17 21:00 Ordered 40 mg PO BID Insulin Aspart [NovoLOG] Med 04/10/17 08:00 Ordered See Protocol SUBCUT TIDAC Latanoprost [Xalatan 0.005% Ophth Soln] Med 04/09/17 21:00 Ordered DOSE ml EYEBOTH BEDTIME Multivitamin [Multivitamins] Med 04/10/17 09:00 Ordered 1 each PO DAILY Nystatin [Nystop] Med 04/09/17 18:37 Ordered 1 gm TOP TID PRN Ondansetron [Zofran ODT] Med 04/09/17 18:47 Ordered 4 mg PO Q6H PRN Ondansetron [Zofran] Med 04/09/17 18:47 Ordered 4 mg IVPUSH Q6H PRN Pantoprazole [ProTONIX] Med 04/10/17 09:00 Ordered 40 mg PO DAILY Potassium Chloride [Klor-Con 10] Med 04/10/17 09:00 Ordered 20 meq PO DAILY Ranitidine HCl [Zantac] Med 04/09/17 21:00 Ordered 150 mg PO BID Zolpidem [Ambien] Med 04/09/17 18:37 Ordered 5 mg PO QPM PRN atorvaSTATin [Lipitor] Med 04/09/17 18:45 Ordered 10 mg PO QPM busPIRone HCl [Buspirone HCl] Med 04/09/17 21:00 Ordered 7.5 mg PO BID glipiZIDE [Glucotrol] Med 04/09/17 21:00 Ordered 5 mg PO BID Resuscitation Status Routine Resus Stat 04/09/17 18:40 Ordered Medication Orders Acetaminophen (Tylenol) 650 mg PO Q4H PRN PRN Reason: Pain (Mild 1-3)/fever Ascorbic Acid (Vitamin C) 500 mg PO DAILY [facility] Aspirin (Halfprin) 81 mg PO BRK GLORIA Atorvastatin Calcium (Lipitor) 10 mg PO QPM [facility] Carvedilol (Coreg) 6.25 mg PO BIDMEALS GLORIA Furosemide (Lasix) 40 mg PO BID [facility] Glipizide (Glucotrol) 5 mg PO BID [facility] Insulin Aspart (Novolog) 0 unit SUBCUT TIDAC [facility] PRN Reason: Protocol Latanoprost (Xalatan 0.005% Ophth Soln) ml EYEBOTH BEDTIME [facility]IA Non-Formulary Medication (Apixaban [Eliquis]) 5 mg PO BID [facility] Non-Formulary Medication (Buspirone Hcl [Buspirone Hcl]) 7.5 mg PO BID [facility] Non-Formulary Medication (Multivitamin [Multivitamins]) 1 each PO DAILY [facility] Non-Formulary Medication (Ranitidine Hcl [Zantac]) 150 mg PO BID [facility] Nystatin (Nystop) 1 gm TOP TID PRN PRN Reason: groin, axilla, skinfolds Ondansetron HCl (Zofran) 4 mg IVPUSH Q6H PRN PRN Reason: Nausea/Vomiting Ondansetron HCl (Zofran Odt) 4 mg PO Q6H PRN PRN Reason: nausea, able to take PO Pantoprazole Sodium (Protonix) 40 mg PO DAILY [facility] Potassium Chloride (Klor-Con 10) 20 meq PO DAILY [facility] Zolpidem Tartrate (Ambien) 5 mg PO QPM PRN PRN Reason: Sleep Assessment/Plan Comment:: Acute encephalopathy with confusion, nausea Likely due to chronic changes in blood sugar. The patient appears to be improved We'll monitor closely Uncontrolled blood sugars with diabetes Use supplemental NovoLog per sliding scale. The patient preferred not to use long-acting formulations. He has been managing with the short-acting every 4 times a day at home. I have added glipizide twice a day Follow blood sugars and adjust as needed Acute on chronic systolic congestive heart failure With left sided pleural effusion Echocardiogram about in [place] showed severe systolic dysfunction Continue lower extremity lymphedema wraps Continue to treat with Lasix Follow electrolytes and renal function test Continue Coreg Stopped losartan due to acute renal failure and hypotension The patient has bradycardia but will try to maintain current Coreg dose for now Consider repeating chest x-ray in a few days to see if there is response to diuretics Consider resuming losartan if renal function and blood pressure remains stable Acute renal failure likely due to ATN due to hypotension with a history of chronic kidney disease stage III We will continue the diuretics twice a day, hold the losartan Left elbow bursitis Finished doxycycline treatment Left upper extremity DVT Treat with Ezio Coronary artery disease Continue Coreg, aspirin Depression Treat with Buspar Continue Ambien as needed for sleep
[2017-04-09] MEDS ORDERED: Insulin Aspart 100 Units/ML 3 ML Pen SUBCUT ONE (21:04)
[2017-04-09] MEDS: Furosemide 40 MG Tab PO SCH (21:07)
[2017-04-09] MEDS: Famotidine 20 MG Tab PO SCH (21:07)
[2017-04-09] MEDS: APIXABAN 5 MG PO SCH (21:08)
[2017-04-09] MEDS: atorvaSTATin 10 MG Tab PO SCH (21:08)
[2017-04-09] MEDS: glipiZIDE 5 MG Tab PO SCH (21:08)
[2017-04-09] MEDS: Latanoprost 0.005% Ophth Soln 2.5 ML Bottle EYEBOTH SCH (21:08)
[2017-04-09] MEDS: busPIRone 15 MG Tab PO SCH (21:08)
[2017-04-09] MEDS: LORazepam 0.5 MG Tab PO PRN (22:39)
[2017-04-09] MEDS: Acetaminophen 325 MG Tab PO PRN (22:39)
[2017-04-10] MEDS ORDERED: LORazepam 2 MG/ML Syringe IVPUSH ONE (01:54)
[2017-04-10] MEDS ORDERED: Potassium Chloride 10 MEQ Tab.ER PO SCH (09:00)
[2017-04-10] MEDS: APIXABAN 5 MG PO SCH ×2 (09:02→21:08)
[2017-04-10] MEDS: Ascorbic Acid 500 MG Tab PO SCH (09:02)
[2017-04-10] MEDS: Multivitamins,Therapeutic Tab PO SCH (09:02)
[2017-04-10] MEDS: Pantoprazole 40 MG Tab.CR PO SCH (09:03)
[2017-04-10] MEDS: Aspirin 81 MG Tab.EC PO SCH (09:03)
[2017-04-10] MEDS: glipiZIDE 5 MG Tab PO SCH ×2 (09:03→21:07)
[2017-04-10] MEDS: busPIRone 15 MG Tab PO SCH ×2 (09:04→21:07)
[2017-04-10] MEDS: Furosemide 40 MG Tab PO SCH ×2 (09:04→21:07)
[2017-04-10] MEDS: Insulin Aspart 100 Units/ML 3 ML Pen SUBCUT SCH ×3 (09:05→17:56)
[2017-04-10] MEDS ORDERED: Sodium Chloride 0.9% 1,000 ML IV SCH (11:30)
[2017-04-10] MEDS: Carvedilol 6.25 MG Tab PO SCH ×2 (13:14→17:58)
[2017-04-10] MEDS: Meropenem 1 GM in Sodium Chloride 0.9% 100 ML IV SCH ×2 (17:59→21:07)
[2017-04-10] MEDS: Sodium Chloride 0.9% 10 ML Syringe FLUSH PRN (18:00)
[2017-04-10] MEDS ORDERED: Insulin Detemir 100 Units/ML 3 ML Pen SUBCUT SCH (21:00)
[2017-04-10] MEDS: Albuterol/Ipratropium 3.0-0.5 MG/3 ML Neb Soln NEB SCH (21:06)
[2017-04-10] MEDS: atorvaSTATin 10 MG Tab PO SCH (21:07)
[2017-04-10] MEDS: Latanoprost 0.005% Ophth Soln 2.5 ML Bottle EYEBOTH SCH (21:08)
[2017-04-10] MEDS: Famotidine 20 MG Tab PO SCH (21:08)
[2017-04-11] MEDS: LORazepam 0.5 MG Tab PO PRN (00:29)
[2017-04-11] MEDS: Acetaminophen 325 MG Tab PO PRN (00:29)
[2017-04-11] MEDS: Albuterol/Ipratropium 3.0-0.5 MG/3 ML Neb Soln NEB SCH (08:00)
[2017-04-11] MEDS: Insulin Aspart 100 Units/ML 3 ML Pen SUBCUT SCH ×2 (08:30→12:04)
[2017-04-11] MEDS: Furosemide 40 MG Tab PO SCH (09:30)
[2017-04-11] MEDS: Pantoprazole 40 MG Tab.CR PO SCH (09:30)
[2017-04-11] MEDS: busPIRone 15 MG Tab PO SCH (09:30)
[2017-04-11] MEDS: Aspirin 81 MG Tab.EC PO SCH (09:30)
[2017-04-11] MEDS: Multivitamins,Therapeutic Tab PO SCH (09:30)
[2017-04-11] MEDS: APIXABAN 5 MG PO SCH (09:35)
[2017-04-11] MEDS: Carvedilol 6.25 MG Tab PO SCH (09:38)
[2017-04-11] MEDS: glipiZIDE 5 MG Tab PO SCH (09:43)
[2017-04-11] MEDS: Meropenem 1 GM in Sodium Chloride 0.9% 100 ML IV SCH (09:45)
[2017-04-11] MEDS: Sodium Chloride 0.9% 10 ML Syringe FLUSH PRN (09:45)
--- NOTE | 2017-04-11 10:08 | PN ---
DATE: 04/10/2017 SUBJECTIVE: Mr. Olsen is a 81-year-old gentleman, who has multiple medical problems. He was seen at [facility] on March 19 and transferred to [facility]. In [place], he was treated for pneumonia and sepsis. He received IV fluids and then had severe edema as a consequence. He was then treated for congestive heart failure as well as left upper extremity DVT. He is a diabetic, and his sugars have been quite labile. He had completed the antibiotics for the pneumonia. He was then admitted to the [facility] and was only there for about 2 days when he presented to the emergency room here in [place] on April 06. Chest x-ray at time of admission showed a left-sided opacity which was felt to be an effusion given that he did not have "active pneumonia symptoms," and the plan was to monitor him and wait on starting treatment for pneumonia. He also was treated for acute on chronic congestive heart failure, likely systolic. He is treated with Lasix for this, and continues on his Coreg and losartan. For the left upper extremity DVT, he continues on Eliquis, and the dose was recently reduced. He does have a history of coronary artery disease, and troponin was only minimally elevated, and was rechecked and the elevated level was thought to be chronic. He also has chronic kidney disease, stage III. He was discharged back to [facility] on the , but was immediately sent back to the emergency room where his blood sugars were found to be above 500. He had received 20 units of NovoLog in the [facility], and then in the ER, he was given 5 units of IV NovoLog and blood sugar dropped into the 140s, and he was noted to have confusion and nausea. He was readmitted for observation before discharging him back to the [facility]. Nursing staff reports that last night was extremely difficult. He was confused and combative. We also noted that today as the day wore on, these symptoms reappeared, and he may be . Repeat lab work performed today showed a white count of 12,000. Admission white count yesterday was 11.5. There is a left shift with 82% neutrophils, hemoglobin and hematocrit stable at 11.8 and 36. Sodium and potassium unremarkable. BUN and creatinine of 44 and 2.2, with a GFR of 29. Review of his blood sugars show his sugars have remained elevated above 300 up to 463 at admission. Because of his confusion and the fact he was not improving, we obtained a chest x-ray as well as a noncontrast head CT. These studies were done to rule out the possibility of pneumonia as a cause for his hyperglycemia and also to rule out the possibility of a new stroke. The non-contrast CT scan of the head showed no acute intracerebral abnormalities. There was mild cerebral atrophy with chronic underlying small- vessel ischemic disease. 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 Single-view chest x-ray was compared to previous study from April 06 and shows persistent atelectasis and/or pneumonia/pneumonitis in the left lower lobe and some questionable pulmonary venous congestion in the left lung compared to the right. The right lung was well aerated, but small in volume. Radiologist noted that an underlying neoplasm on the left could not be ruled out. The results were discussed with Mrs. Olsen, and it was decided that we would place him back on an IV antibiotic to see if this made a difference in his overall condition. Possibly if there is a persistent pneumonia and we treat it this may help with the blood sugars and treatment infection may also help with his mental status. This is difficult to say at this point. He was started on meropenem 1 g IV every 12 hours based on his creatinine clearance of 26. Review of his clinical data shows that he is taking in fluids. He is voiding in response to the Lasix. Appetite is poor. Vital signs have remained stable. He has remained afebrile. PHYSICAL EXAMINATION: Vital Signs: On exam, blood pressure is 112/39, pulse 60, respiratory rate 18, oxygen saturation 97% on room air. He is afebrile HEENT: Unremarkable. ENT was clear. Chest: Showed diminished bilateral breath sounds. Heart: Showed regular rate and rhythm. Abdomen: Showed improvement in the edema that had been seen previously on admission. 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 These amputations were performed in 1997 and 2003. Until recently, he had been able to wear his prostheses and ambulate on daily basis outside his home. Skin: Examination of the skin shows markedly red rash in the left axilla. They had been putting Nystatin powder on this, and I asked him to stop the powder, and we switched him to triamcinolone/nystatin cream to apply twice a day to the area. He already is receiving another nystatin product in the skin folds of the groin and abdomen. I discussed the treatment options with Mrs. Olsen. She was in agreement with this and he was started on meropenem. Hopefully, we will see improvement. Overall, this gentleman is caring a large burden of disease and seems to be in decline with cognitive impairment in addition to his multiple medical problems. Long-term prognosis is quite guarded. [facility] /[id number] MTDD
[2017-04-11] MEDS: Ascorbic Acid 500 MG Tab PO SCH (11:43)
--- NOTE | 2017-04-15 05:54 | DISCH ---
DISCHARGE DIAGNOSES: 1. Persistent pneumonia/pneumonitis in the left lower lobe, consider hospital- acquired pneumonia, based on history. 2. Type 2 diabetes. 3. Anemia, normocytic. 4. Hyponatremia, mild, resolved. 5. Chronic kidney disease stage III. 6. Hypoalbuminemia, albumin 2.5. 7. Cerebrovascular disease. 8. Cognitive impairment. 9. Congestive heart failure and cardiomyopathy by history. 10.Coronary artery disease by history. 11.Bilateral below-knee amputations by history. BRIEF HISTORY OF PRESENT ILLNESS: Mr. Olsen is a 81-year-old gentleman with multiple medical problems. On March 19, he was seen at the emergency room at [facility] and transferred to . There he was treated for pneumonia and sepsis. He had secondary fluid overload and severe edema secondary treatment for sepsis and was then treated for congestive heart failure as well as for a left upper extremity DVT. He is a diabetic, and his sugars are quite labile at times. He completed a course of antibiotics for the pneumonia and was then admitted to [facility] and was only there for about 2 days when he presented to the emergency room in [place] on April 06. Chest x-ray at the time of admission showed a left-sided opacity. He did not come in with fever, cough, chills, or any other active pneumonia symptoms, and it was decided to wait before starting treatment for pneumonia. He was treated for [id number] congestive failure, most likely systolic and was given Lasix and continued on his Coreg and losartan. He was admitted in [place] from the to and return to [facility] but immediately was returned to the emergency room within 2 hours when nursing staff at the [facility] noted his sugars to be above 500. In the emergency room, sugars dropped to the 140s after receiving IV insulin. He was readmitted for observation before being discharged back to the [facility]. Nursing staff also noted on the night before admission, he was very confused and combative. We also noticed this here during this admission. The symptoms seemed to get worse as the day goes on, and this may be "ing." PERTINENT LABS AND X-RAYS: CBC at the time of admission was 11.5 and 12.1. On repeat exam, hemoglobin and hematocrit were 11.8 and 36, platelets were normal. Electrolytes were essentially unremarkable. BUN and creatinine of 44 and 2.2 with a GFR of 29, albumin 2.5. Blood sugars were followed during the admission and for the most part were elevated in the 300s up to 426. On the day of discharge, early a.m., blood sugar was 63 and 134 before discharge. Urinalysis was negative. One set of blood cultures showed no growth. Imaging studies: A single-view chest x-ray performed following this admission showed persistent atelectasis and/or pneumonia/pneumonitis in the left lower lobe with some questionable pulmonary venous congestion in the left lung compared to the right. A non-contrast CT scan of the head was obtained and showed microvascular changes in both cerebral hemispheres. There is an old chronic infarction noted in the right cerebellar hemisphere. There was no bleeding, and there were no acute intracerebral changes noted. HOSPITAL COURSE: Mr. Olsen was admitted under observation. He was continued on his usual medications. Apparently, he has been reluctant to use long-acting insulin, and preferred to use NovoLog and glipizide 5 mg twice a day. During this admission, sugars were elevated, and it was decided to discontinue the glipizide because of his renal dysfunction and also the issues of hypoglycemia at times. He was started on Levemir 10 units daily and was continued on a NovoLog sliding scale. On the second day of admission, his white count remained slightly elevated, and because he did not seem to be clinically improving, a followup chest x-ray was done, which showed persistent changes in the left lower lobe and it was decided he would be started on meropenem 1 g IV every 12 hours, based on reduced creatinine clearance. We also started him on DuoNeb nebulizer treatment 3 times a day. These changes seemed to help, and he seemed improved on the next day and blood sugars were also improved. He was noted to have a significant rash in the left axilla, and he was placed on triamcinolone cream for this rash. Nystatin is already being used in skin folds. We spoke to the staff at [facility]. They were able to take Mr. Olsen back and continue the IV antibiotics. Therefore, arrangements were made for him to be transferred back to [place]. PHYSICAL EXAMINATION: Vital Signs: On day of discharge shows stable vital signs with a blood pressure of 124/62, pulse 77, respiratory rate 18, oxygen saturation 94% on room air. He was afebrile. Weight was 185 pounds 9.6 ounces. Height 5 feet 8 inches. HEENT: Unremarkable. ENT: Clear. Chest: Showed diminished bilateral breath sounds, particularly at the left base without active wheezing. Heart: Showed regular rate and rhythm. Abdomen: Obese and benign. Extremities: Showed bilateral BKAs. Neurological: He was confused and did not participate actively. DISCHARGE MEDICATIONS: He was started on Levemir 10 units at bedtime. He will continue on DuoNeb nebulizer treatments 3 times a day as these did seem to help. He will continue on meropenem 1 g IV every 12 hours for the next 10 days. He also will continue on nystatin/triamcinolone cream to the left axilla. His usual medications were continued including Eliquis, ascorbic acid, aspirin EC, Tylenol, carvedilol, Senna-S, furosemide, multivitamin, pantoprazole, MiraLax, potassium chloride, atorvastatin, buspirone, and NovoLog sliding scale. Following medications were discontinued: Ranitidine was stopped as he is also on pantoprazole. Zolpidem 5 mg at bedtime was also stopped because of confusion and combativeness at times. Glipizide 5 mg twice a day was stopped and he will continue on insulin only for control of his hyperglycemia and for better control of the blood sugars. Please see the final med list for doses and schedules. ALLERGIES: To meperidine (unknown reaction). Orders were also written for evaluation by Physical and Occupational Therapy as well as Speech Therapy to evaluate his aspiration potential. He will continue on a no-added salt, no concentrated sugar/ADA diet, regular texture, thin liquids. Gluc checks 4 times a day before meals and at bedtime. CONDITION AT THE TIME OF DISCHARGE: Back to the [facility], improved and stable. CODE STATUS DURING THIS ADMISSION: Do not resuscitate/do not intubate. CONDITION AT TIME OF DISCHARGE: Hemodynamically stable and slightly improved. His rehab potential is fair. His discharge potential is poor. His long-term prognosis is quite guarded given his multiple medical problems as well as his large burden of disease and cognitive decline. [facility] /[id number] ALIREZA
== END 2017-04-11 12:30 ==
LOC: DL.ED 15:08 → UNDOADMOB 18:21 → DL.MS 18:21
PROVIDERS: ADMIT Internal Medicine; ATTEND Internal Medicine
DX: G93.40 Encephalopathy, unspecified (principal); E11.65 Type 2 diabetes mellitus with hyperglycemia; E11.22 Type 2 diabetes mellitus with diabetic chronic kidney disease; N18.3 Chronic kidney disease, stage 3 (moderate); I50.23 Acute on chronic systolic (congestive) heart failure; N17.9 Acute kidney failure, unspecified; I95.9 Hypotension, unspecified; F41.9 Anxiety disorder, unspecified; F32.9 Major depressive disorder, single episode, unspecified; M70.22 Olecranon bursitis, left elbow; I25.10 Atherosclerotic heart disease of native coronary artery without angina pectoris; I82.622 Acute embolism and thrombosis of deep veins of left upper extremity; G47.00 Insomnia, unspecified; K21.9 Gastro-esophageal reflux disease without esophagitis; K59.09 Other constipation; Z88.5 Allergy status to narcotic agent; Z79.01 Long term (current) use of anticoagulants; Z79.82 Long term (current) use of aspirin; Z79.899 Other long term (current) drug therapy; Z89.512 Acquired absence of left leg below knee; Z89.511 Acquired absence of right leg below knee
CPT/HCPCS: 36415; 70450; 71010; 80048; 80053; 81001; 82962; 85025; 87040; 94640; 96361; 96374; 96375; 99285; A9270; J1815; J2060; J2185; J2405; J7030; J7050; 96365; 96366; 96376; 99283; G0378